=== PATIENT | male | born 1970 | race Caucasian/White ===

== ENCOUNTER 2024-05-01 09:03 | Emergency (ER) | payer OTHER, SELFPAY ==
[2024-05-01 09:06] VITALS: BP 217/104; BMI 39.6
--- NOTE | 2024-05-01 09:10 | ED.CVA ---
History of Present Illness
General
Chief Complaint: CVA/TIA Symptoms
Source: patient and ambulance crew
Exam Limitations: none
Time Seen by Provider: 05/01/24 09:09
Nursing documentation reviewed up to this point in time: agreed with
Onset of Stroke Symptoms
Onset of symptoms known: Yes
Date of onset of symptoms: 05/01/24
Time of onset of symptoms: 03:00
Time pt last seen normal is known: No
History of Present Illness
History of Present Illness:
54-year-old male presents emergency department complaining of left hand numbness, difficulty speaking. Symptoms began at 3 AM. When he awoke it was worse. He does not feel like he is having trouble speaking at this time.
Past History
Past History
ED Past Medical History: HTN and Other (Guillian Lock� syndrome, L5-S1 herniated disc)
ED Past Surgical History: Other (Lymph node removed from neck)
Social History
Tobacco: Smoker
Alcohol: None
Drug: None
Family History
Family History: Negative Diabetes, Hypertension or CAD
Review of Systems
Review of Systems
Allergies reviewed?: Yes
All Other Systems: Not applicable
Constitutional: Reports no symptoms
EENT: Reports other (Difficulty speaking)
Respiratory: Reports no symptoms
Cardiac: Reports no symptoms
ABD/GI: Reports no symptoms
: Reports no symptoms
Musculoskeletal: Reports no symptoms
Skin: Reports no symptoms
Neurological: Reports numbness
Endocrine: Reports no symptoms
Hematologic/Lymphatic: Reports no symptoms
Psychiatric: Reports no symptoms
Phy Exam
Physical Exam
Physical Exam:
Physical Exam
General: no apparent distress, not acutely ill
Neck: supple. no meningeal signs. normal posterior pharynx
Heart: s1/s2 regular rate and rhythm, no murmur. equal radial
pulses.
HEENT: Pupils equal round reactive to light, EOMI
Lungs: no acute respiratory distress. clear bilaterally
Abdomen: normal bowel sounds. not tender. no CVAT
Neuro: alert and oriented. no focal neurological deficits, except mild sensory deficit in left hand. cranial nerves II through XII intact
Skin: no rash
Psychiatric: well kept. interactive and cooperative
Extremities: no edema. no calf tenderness. negative homans. good distal pulses
NIH Stroke Score
Level of Consciousness: 0 - Alert
LOC questions: 0-Answers both correctly
LOC Commands: 0-Performs both correctly
Best Gaze: 0-Normal
Visual Vargas: 0=Normal, no visual loss
Facial palsy: 0=Normal, symmetrical
Motor - Right Arm: 0=No drift 10 seconds
Motor - Left Arm: 0=No drift 10 seconds
Motor - Right Le-No drift 5 seconds
Motor - Left Le-No drift 5 seconds
Limb Ataxia: 0-Absent
Sensation: 1-Mild loss
Best Language: 0-No aphasia
Dysarthria: 0-Normal
Extinction and Inattention: 0-No abnormality
Total Score:: 1
Alteplase Contraindication
Reasons for NON-Treatment with Thrombolytics: Time
Marjorie Coma Scale
Eye Opening: Spontaneous
Verbal Response: Oriented
Motor Response: Obeys Commands
GCS Total Score: 15
Scores
NIH Stroke Score
Level of Consciousness: 0 - Alert
LOC Questions: 0-Answers both correctly
LOC Commands: 0-Performs both correctly
Best Horizontal Gaze: 0-Normal
Visual Vargas: 0=Normal, no visual loss
Facial Palsy: 1=Minor paralysis
Motor - Right Arm: 0=No drift 10 seconds
Motor - Left Arm: 0=No drift 10 seconds
Motor - Right Le-No drift 5 seconds
Motor - Left Le-No drift 5 seconds
Limb Ataxia: 0-Absent
Sensation: 2-Severe loss
Best Language: 0-No aphasia
Dysarthria: 0-Normal
Extinction and Inattention: 0-No abnormality
Total Score:: 3
Thrombolytic Contraindication
Inclusion and Exclusion criteria reviewed: Yes
Reasons for NON-Tx with Thrombolytics ABSOLUTE Exclusions: Greater than 4.5 hrs from onset of sxs
Course
Orders/Labs/Results
Orders:
Orders
05/01/24 09:09
Electrocardiogram (*1) Stat
Reason for Study: Other
Other Reason for Exam: neuro symptoms
CT Head W/o Cont STROKE ALERT Urgent
Comment:
Reason For Exam: left arm numbness/weakness, dysarthria
CT Head/Neck Ang STROKE ALERT Urgent
Comment:
Reason For Exam: left arm numbness/weakness, dysarthria
Cardiac Monitoring- Treatment ONCE
EKG- Treatment ONCE
Pulse Ox/cont/shift [RESP] Stat
Quantity: 1
05/01/24 09:10
CMP [Comprehensive Metabolic Panel] Urgent
Complete Blood Count/With Diff Urgent
05/01/24 09:22
PTT Urgent
Prothrombin Time Urgent
05/01/24 09:25
Aspirin 325 mg PO NOW STA
Clopidogrel Bisulfate [Plavix] 300 mg PO NOW STA
NIH Stroke Scale As Directed
Directions: Per protocol
Neurological Checks As Directed
Frequency: Per unit guidelines
05/01/24 09:41
Nicardipine 40 mg/200 ml [Cardene] 40 mg in 200 ml IV NOW
05/02/24 08:00
Aspirin Low Dose EC [Aspir Low (Enteric Coated)] 81 mg PO DAILY
Clopidogrel Bisulfate [Plavix] 75 mg PO DAILY
Abnormal Lab Results
05/01/24 05/01/24
09:10 09:11
MPV 10.5 H fL
(7.4-10.4)
Absolute Monos (auto) 0.7 H 10^3/uL
(0.1-0.6)
Lymphocytes % 18.8 L %
(20.5-51.1)
Glucose 213 H mg/dl
(70-99)
POC Glucose 220 H mg/dl
(70-99)
05/01/24 09:10
05/01/24 09:10
Vital Signs
Initial and Last Documented VS:
Initial Vital Signs
Pulse Resp BP Pulse Ox
60 16 217/104 93
05/01/24 09:06 05/01/24 09:06 05/01/24 09:06 05/01/24 09:06
Last Documented Vital Signs
Temp Pulse Resp BP Pulse Ox
98.2 F 63 21 207/76 96
05/01/24 09:32 05/01/24 10:15 05/01/24 10:15 05/01/24 10:15 05/01/24 10:15
MDM/Problems Addressed
Differential Diagnosis Includes:
Intracranial hemorrhage, acute CVA
MDM/Problems Addressed:
54-year-old male with acute CVA, right carotid occlusion
Chronic conditions affecting care: HTN
Acute Exacerbation and/or Progression of Chronic Illness: HTN
*Radiology
Radiology exam reviewed: radiology read reviewed (CTA head and neck shows right internal carotid artery occlusion)
*Pulse Oximetry
Patient hypoxic: no
*EKG
Interpreted by ED Provider?: Yes
EKG Intrepretation Date: 05/01/24
EKG Intrepretation Time: 09:29
Interpretation: abnormal
Comparison EKG: changes noted
Heart Rate: 55
Rate: bradycardiac
Rhythm: sinus
Surveyor: normal axis
Interval: normal interval
QRS Pattern: normal QRS
Ischemia: non-specific ST changes
*Monitoring Manager Interpretation
Rate: bradycardiac
Interpretation: abnormal
Heart Rate: 55
Rhythm: sinus
*Critical Care Note
Total Time (30-74mins, 75-104mins- exclusive of procedures): 45
comment:
Critical care statement: A total of 45 minutes of critical care time was provided for this patient. This includes management of unstable vital signs, evaluation of the patient at bedside, reviewing the patient's pertinent medical records, discussion
with consultants, review of old EKGs and review of pertinent medical records. This time with separate from time utilized to perform the aforementioned documented procedures
Patient Management
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
Escalation/DeEscalation of care consider admission/obs:
Transfer to [facility]
ED Attending Note
-
Portions of this chart may have been created with voice recognition software.� Occasional wrong word or��sound alike� substitutions may have occurred due to the inherent limitations of voice recognition software.
Discharge Plan
Departure
Patient Disposition: Acute Care Hospital
Date of Disposition: 05/01/24
Time of Disposition: 10:05
Condition: Fair
Discharge Problem:
Acute cerebrovascular accident (CVA)
Prescriptions:
No Action
calcium carbonate-vitamin D3 [Calcium + D] 600 mg-5 mcg (200 unit) Tablet
1 tab PO DAILY
ibuprofen 200 mg Tablet
600 mg PO [id number] PRN (Reason: back pain)
Centrum Silver Tablet
1 tab PO DAILY
Hospital Transfer
Other hospital: [facility]
I certify that the patient requires transfer: Yes
Discussed case with accepting physician: Flakita
Reason for transfer: higher level of care and specialties available
Interventions
Interventions:
*Risk Screen - Suicide Last Done: 05/01/24 09:32
*General Assessment Last Done: 05/01/24 09:06
*Neglect/Abuse Screening Last Done: 05/01/24 09:32
ED- Fall Risk Assessment Last Done: 05/01/24 09:06
*ED COVID-19 Vaccine History Last Done: 05/01/24 09:32
*Nursing Disposition Last Done: 05/01/24 10:40
ED- Pulmonary Assessment Last Done: 05/01/24 09:06
ED- Neurological Assessment Last Done: 05/01/24 09:06
ED- Cardiac Assessment Last Done: 05/01/24 09:06
ED Swallowing Screen Last Done: 05/01/24 09:36
Discharge Date and Time
Discharge Date/Time: 05/01/24 10:40
Print Language: PALAUAN
[2024-05-01 09:17] LABS: Glucose - Point of Care 220 mg/dl (70-99)
[2024-05-01 09:19] LABS: % Eosinophils 1.8 % (0-6); % Immature Granulocytes 0.2 % (0-0.5); % Lymphocytes 18.8 % (20.5-51.1); % Monocytes 7.8 % (1.7-9.3); % Neutrophils 70.4 % (42.2-75.2); Absolute Basophils 0.1 10^3/uL (0-0.2); Absolute Eosinophils 0.2 10^3/uL (0-0.7); Absolute Lymphocytes 1.7 10^3/uL (1.2-3.4); Absolute Monocytes 0.7 10^3/uL (0.1-0.6); Absolute Neutrophils 6.4 10^3/uL (1.4-6.5); Hematocrit 43.9 % (39.0-52.0); Hemoglobin 15.5 g/dL (13.0-18.0); Mean Corp Hgb Conc. 35.3 g/dL (33.0-37.0); Mean Corpuscular Hgb 30.6 pg (27.0-31.0); Mean Corpuscular Volume 86.8 fL (80.0-94.0); Mean Platelet Volume 10.5 fL (7.4-10.4); Nucleated Red Blood Cells % 0 % (-); Platelet Count 215 10^3/uL (130-400); Red Blood Cell Count 5.06 10^6/uL (4.70-6.10); Red Cell Dist. Width 12.9 % (11.5-14.5); White Blood Cell Count 9.1 10^3/uL (4.8-10.8)
[2024-05-01 09:30] VITALS: BP 224/91
[2024-05-01 09:32] VITALS: BP 224/90
[2024-05-01 09:36] LABS: ALT (SGPT) 30 U/L (0-50); AST (SGOT) 34 U/L (17-59); Albumin 4.3 g/dl (3.5-5.0); Alkaline Phosphatase 116 U/L (38-126); Blood Urea Nitrogen 18 mg/dl (9-20); Calcium 9.2 mg/dl (8.4-10.2); Carbon Dioxide 24 mmol/L (22-30); Chloride 105 mmol/L (98-107); Estimated Creatinine Clearance > 125 ml/min; Glucose 213 mg/dl (70-99); Potassium 4.4 mmol/L (3.5-5.1); Sodium 139 mmol/L (135-145); Total Bilirubin 0.8 mg/dl (0.2-1.3); Total Protein 7.5 g/dl (6.3-8.2); eGFR > 60.00
[2024-05-01] MEDS: ASPIRIN 325 MG PO (09:37)
[2024-05-01] MEDS: PLAVIX 300 MG PO (09:37)
[2024-05-01 09:43] LABS: INR 1.02; PT 13.4 Sec (11.4-14.6)
[2024-05-01] MEDS: CARDENE 200 IV (09:45)
[2024-05-01 09:49] VITALS: BP 238/104
[2024-05-01 10:15] VITALS: BP 207/76
--- NOTE | 2024-05-01 12:59 | CON.NEURO4 ---
Consultation - Neurology 4
-
CONSULTING PHYSICIAN: Sara Mesa
REFERRING PHYSICIAN: ER
DICTATED BY: Sara Mesa
DATE/TIME OF REQUEST: 05/01/24
DATE/TIME OF CONSULTATION: 05/01/24
Reason for Consultation: Left hemibody paresthesia, left hand weakness
History of Present Illness:
Patient is a right-handed 54-year-old male with a past med history of obesity presented to hospital with left hand weakness and left hemibody paresthesia. He was last known normal last night around 10 PM before going to bed he did notice some of
the symptoms seem to be present with some left hand numbness around 3 AM last night. He woke up this morning was able to get out of bed but did feel significantly dizzy with some feeling of numbness on the left hand and arm. 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
his [employer] store and due to worsening symptoms along with speech difficulty he presented to the ER as a stroke alert with transportation via EMS.
He noticed that in the morning he was having dropping objects and was not able to use his left hand properly.
Patient has no history of TIA or stroke does not take any blood thinners he had been recommended for taking antihypertensives but chose not to pursue this. Currently no headache. No history of any visual issues on the right or left eyes.
Past Medical History: Suspect undiagnosed hypertension, obesity
Surgical History: None
Family History: No family history of stroke or CAD at early age
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
Allergies: No known drug allergies
Review of Symptoms:
Patient denies any fever, headache, chest pain, shortness of breath, GI or symptoms.
Physical Exam:
Middle-age man well-appearing pleasant well-groomed well-nourished no signs of head or neck trauma eyes are clear oropharynx is clear neck supple no masses, heart rate regular breathing unlabored abdomen obese soft nontender no lower extremity edema
Neurologic Examination:
The patient is awake, alert and oriented x 3. He is able to follow commands and answer questions appropriately. There is no aphasia. Recognizes own left arm. Barely appreciable dysarthria present. On cranial nerve assessment, pupils are 3 mm
bilateral, round and reactive to light and accommodation. Visual vargas are full. Extraocular movements are intact. Facial sensations are intact and bilaterally symmetrical, left face has some asymmetry with droop on the left but no weakness on
smiling. Hearing is intact bilaterally to normal conversation volume. Tongue palate and uvula are midline. Sternocleidomastoid strengths are full bilaterally. Motor strengths are 5/5 bilateral upper and lower extremities on medical research
[place] scale. There is no drift or involuntary movement noted. Deep tendon reflexes are 2+ bilateral upper and lower extremities and Babinski is absent bilaterally. Significant sensation loss to light touch on left arm and leg, cannot feel light
touch on either limb. Coordination is intact by finger to nose bilaterally.
Neuro Imaging:
CT head noncontrast with no acute infarct or early ischemia seen aspect score of 10 no hemorrhage no masses or edema
CTA of the head and neck with right internal carotid occlusion at the origin with some reconstitution at the distal ICA, no no intracranial occlusion of the MCA or BRIEN or [employer]ICER arteries identified.
Impressions
1. Acute onset left arm and leg paresthesia with signs by history of left hand weakness, also very minor dysarthria and left facial weakness. Probably related to the right internal carotid artery occlusion and as such the patient is at risk for
large right MCA stroke. He has mild deficits with NIH stroke scale of 3-4 with the work and as such would not be a typical mechanical thrombectomy candidate but this would still need to be strongly considered
2. Likely undiagnosed hypertension
Patient has the following risk factors for their symptoms:
IV Tenecteplase/IAT candidacy: Outside time window for TNK. Patient does have a right internal carotid occlusion which is probably related to his left-sided arm weakness and left-sided paresthesia, although it is possible that this is a chronic
lesion. He has mild deficits on neurologic examination with significant left arm and leg sensory loss, perhaps minor dysarthria and perhaps minor left facial weakness an NIH stroke scale of 3-4 at the worst. Pursuing thrombectomy in such a patient
would be controversial but I do feel that he would be best served by transfer to a comprehensive stroke center where he could be watched in a specialized setting and pursued for thrombectomy if felt appropriate.
Recommendations:
1. Give aspirin 324 and clopidogrel 300 mg both now
2. Would pursue transfer to [facility] center
3. Would start low-dose Cardene 2.5 mg an hour, pursue systolic blood pressure less than 220 for the time being
4. Not a candidate for tenecteplase
5. Neurologic checks and NIH scales
6. Cardiac telemetry
7. Discussed my reasoning behind transfer to [facility] [place] with the patient and [facility], he would not be a clear-cut thrombectomy candidate, in some situations patient will be monitored closely in ICU setting but also
would need to be strongly considered for clot removal of the right internal carotid occlusion, this being the case I do feel he would be best served by [facility] center with specialty care by stroke neurology and endovascular
proceduralists.
ICU time = 80 minutes
NIH Stroke Score
Subsequent NIH Scale
Date of Subsequent NIH Scale: 05/01/24
Time of Subsequent NIH Scale: 10:00
NIH Stroke Score
Level of Consciousness: 0 - Alert
LOC Questions: 0-Answers both correctly
LOC Commands: 0-Performs both correctly
Best Horizontal Gaze: 0-Normal
Visual Vargas: 0=Normal, no visual loss
Facial Palsy: 1=Minor paralysis
Motor - Right Arm: 0=No drift 10 seconds
Motor - Left Arm: 0=No drift 10 seconds
Motor - Right Le-No drift 5 seconds
Motor - Left Le-No drift 5 seconds
Limb Ataxia: 0-Absent
Sensation: 2-Severe loss
Best Language: 0-No aphasia
Dysarthria: 0-Normal
Extinction and Inattention: 0-No abnormality
Total Score:: 3
Alteplase Contraindication
Reasons for NON-Tx with Thrombolytics ABSOLUTE Exclusions: Greater than 4.5 hrs from onset of sxs
Home Medications
-
Home Medications
calcium carbonate 600 mg-vitamin D3 5 mcg (200 unit) tablet 1 tab PO DAILY Supplement 05/01/24
ibuprofen 200 mg tablet 600 mg PO [id number] PRN back pain 05/01/24
[id number]-[id number]-[id number] tablet 1 tab PO DAILY Supplement 05/01/24
Allergies
-
Allergies
Allergy/AdvReac Type Severity Reaction Status Date / Time
No Known Allergies Allergy Verified 05/01/24 09:07
Vital Signs / Labs
-
Vital Signs and Labs:
Temp Pulse Resp BP Pulse Ox
98.2 F 63 21 207/76 96
05/01/24 09:32 05/01/24 10:15 05/01/24 10:15 05/01/24 10:15 05/01/24 10:15
05/01/24 09:10
05/01/24 09:10
05/01/24 05/01/24
09:10 09:11
MPV 10.5 H
Absolute Monos (auto) 0.7 H
Lymphocytes % 18.8 L
Glucose 213 H
POC Glucose 220 H
== END 2024-05-01 10:40 | disposition short-term general hospital (02) ==
LOC: EMR 09:03
PROVIDERS: EMERGENCY PHYSICIAN Emergency Medicine; OTHER PHYSICIAN Student in an Organized Health Care Education/Training Program
DX: I63.9 Cerebral infarction, unspecified (principal); R47.1 Dysarthria and anarthria; R53.1 Weakness; I65.21 Occlusion and stenosis of right carotid artery; I10 Essential (primary) hypertension; E66.9 Obesity, unspecified; G61.0 Guillain-Barre syndrome; F17.210 Nicotine dependence, cigarettes, uncomplicated
CPT/HCPCS: 99291; 96365; 70450; 70496; 70498; 80053; 82962; 85025; 85610; 85730; 93005; Q9967

== ENCOUNTER 2024-05-03 22:13 | Inpatient (IN) | payer OTHER, SELFPAY ==
[2024-05-03 19:02] VITALS: BP 186/112
[2024-05-03 19:09] VITALS: BP 126/57
[2024-05-03 19:11] VITALS: BMI 36.3
--- NOTE | 2024-05-03 19:12 | EDRN ---
pt was driving to work and his L hand was numb so 911 called. 'Next thing I knew I was in [place] and I've had enough of that and I decided I didn't want to be there any more.' Pt says he was evlauated and told they did not want to
do surgery because he was a 1-2 on the stroke scale so he would be started on blood thinners and watch him. Pt says he was told the clot that he has there is a good chance it would clear up. Pt says his L hand is still numb and he has been told he
has a L facial droop. Pt signed out AMA from [place] this morning and went home. Son says pt's speech is '10 times worse than it was yesterday.' Son wanted to bring pt back to [place] but he wanted to get pt to [facility]. Son has
been talking with neurologist who said pt should come back [facility]. Doctor reportedly told son that pt is weaker than previously. Someone called 911 [facility] because they saw pt on the street. Son arrived and told EMS he would take pt to hospital.
Pt has chronic back pain. Pt describes mild pressure all over head. No photophobia, visual disturbance. Son says pt needs 2 people to help him walk. Pt unable to get onto his feet independently. L arm feels less sensation than R. No cp, sob,
abd pain, n/v, fever/chills/cough.
[2024-05-03 19:55] LABS: % Basophils 0.7 % (0-2); % Immature Granulocytes 0.3 % (0-0.5); % Lymphocytes 13.2 % (20.5-51.1); % Monocytes 7.3 % (1.7-9.3); % Neutrophils 77.5 % (42.2-75.2); Absolute Basophils 0.1 10^3/uL (0-0.2); Absolute Eosinophils 0.1 10^3/uL (0-0.7); Absolute Lymphocytes 1.8 10^3/uL (1.2-3.4); Absolute Neutrophils 10.4 10^3/uL (1.4-6.5); Hematocrit 45.1 % (39.0-52.0); Hemoglobin 16.1 g/dL (13.0-18.0); Mean Corp Hgb Conc. 35.7 g/dL (33.0-37.0); Mean Corpuscular Hgb 30.4 pg (27.0-31.0); Mean Corpuscular Volume 85.3 fL (80.0-94.0); Mean Platelet Volume 10.4 fL (7.4-10.4); Nucleated Red Blood Cells % 0 % (-); Platelet Count 240 10^3/uL (130-400); Red Blood Cell Count 5.29 10^6/uL (4.70-6.10); Red Cell Dist. Width 12.9 % (11.5-14.5); White Blood Cell Count 13.5 10^3/uL (4.8-10.8)
[2024-05-03 21:00] VITALS: BP 113/66
[2024-05-03 21:09] LABS: Blood Urea Nitrogen 30 mg/dl (9-20); Calcium 9.9 mg/dl (8.4-10.2); Carbon Dioxide 25 mmol/L (22-30); Chloride 102 mmol/L (98-107); Estimated Creatinine Clearance 110 ml/min; Glucose 132 mg/dl (70-99); Magnesium 2.4 mg/dl (1.6-2.3); Sodium 137 mmol/L (135-145); eGFR > 60.00
--- NOTE | 2024-05-03 21:13 | ED.CVA ---
History of Present Illness
General
Chief Complaint: CVA/TIA Symptoms
Source: patient
Exam Limitations: none
Time Seen by Provider: 05/03/24 19:14
Nursing documentation reviewed up to this point in time: agreed with
Onset of Stroke Symptoms
Onset of symptoms known: Yes
Date of onset of symptoms: 05/01/24
Travel History
Have you had any contact with someone who has COVID-19?: No
Do you have any symptoms of coronavirus? Fever > 100 degrees, chills, cough, shortness of breath, sore throat, loss of taste or smell, muscle aches, or headache?: No
History of Present Illness
History of Present Illness:
Patient diagnosed with CVA 2 days ago and transferred to [facility] secondary to complete occlusion of right ICA, presents to ED for evaluation today, after he signed out AMA at [facility] this morning. Since being discharged home,
son states that patient's speech appears to be more slurred. Patient also has trouble ambulating. Patient denies headache. Denies dizziness. Denies difficulty swallowing. Denies loss of sensation. Patient was given medications when he left
[facility] this morning, which he has not taken yet.
Past History
Past History
ED Past Medical History: HTN and Other (Guillian Lock� syndrome, L5-S1 herniated disc)
ED Past Surgical History: Other (Lymph node removed from neck)
Social History
Tobacco: Smoker
Alcohol: None
Drug: None
Family History
Family History: Negative Diabetes, Hypertension or CAD
Review of Systems
Review of Systems
Allergies reviewed?: Yes
All Other Systems: ROS reviewed and negative except as documented in HPI and ROS
Constitutional: Reports no symptoms
Respiratory: Reports no symptoms
Cardiac: Reports no symptoms
ABD/GI: Reports no symptoms
Musculoskeletal: Reports no symptoms
Skin: Reports no symptoms
Neurological: Reports weakness and other (Slurred speech)
Phy Exam
Physical Exam
Physical Exam:
Physical Exam
General: mild distress, not acutely ill
Neck: supple. no meningeal signs.
Heart: s1/s2 regular rate and rhythm, no murmur. equal radial pulses.
Lungs: no acute respiratory distress. clear bilaterally
Abdomen: normal bowel sounds. not tender.
Neuro: alert and oriented. slurred speech. facial droop. LUE motor (3/5). LLE motor (4/5).
Skin: no rash
Psychiatric: well kept. interactive and cooperative
Extremities: no edema. no calf tenderness.
Course
Orders/Labs/Results
Orders:
Orders
05/03/24 19:38
Electrocardiogram (*1) Urgent
Reason for Study: PreOp
CT Head W/o Iv Contrast Urgent
Comment:
Reason For Exam: left sided weakness with slurred speech
EKG- Treatment ONCE
05/03/24 19:49
Complete Blood Count/With Diff Urgent
05/03/24 20:29
Basic Metabolic Panel Urgent
Magnesium Urgent
05/03/24 21:14
Aspirin 325 mg PO NOW STA
Clopidogrel Bisulfate [Plavix] 75 mg PO NOW STA
05/03/24 21:27
Speech Screening from [place] Routine
05/03/24 21:58
Admit/Transfer Patient As Directed
Co-Sign Provider:
Level of Care: Inpatient admission
Assign to:: Telemetry
Physician / Group: Hospitalist
Diagnosis: CVA
Reason for Telemetry: CVA/TIA
Date to Stop Telemetry: 05/06/24
Time to Stop Telemetry: 11:00
Reason for Hospitalization: CVA/TIA
Expected length of stay greater than two midnights?: Yes
ELOS- Estimated Length of Stay in days: 5
I certify the patient meets the requirements for IP care: Yes
05/03/24 22:00
Code Status As Directed
Resuscitation Status: Full Code
05/03/24 23:03
Acetaminophen [Tylenol/Feverall] 650 mg RECTAL Q4HPRN PRN
Acetaminophen [Tylenol] 650 mg PO Q4HPRN PRN
Dextrose 50%-Water [Dextrose 50% Syringe] 12.5 grams IV [id number] PRN
Glucagon [GlucaGen] 1 mg IM PRN PRN
Nicotine Polacrilex [Nicorette] 2 mg PO Q3HPRN PRN
05/03/24 23:03
Case Management Consult ONCE
Case Management Consult: Discharge Planning
Comment: stroke/tia
Consult Notification Routine
Specialty to Notify: Neurology
DIETARY CONSULT Routine
Reason for Consult: stroke/TIA
NEUROLOGY CONSULT Urgent
Consulting Provider: Sari Gordillo
Was physician already notified: No
Reason for consult: CVA
Pharmacy Tech Urgent
MR Brain Without Contrast Routine
Comment:
Reason For Exam: stroke/TIA
OK for patient to be off Cardiac Monitoring for MRI: Yes
Recent pill cam endoscopy?: No
Activity As Directed
Activity Level: With Assistance
Bedside Glucose Monitoring As Directed
Frequency: AC&HS
Additional Instructions:: Change to q6h if pt on TPN, tube feeding or not eating
NIH Stroke Scale As Directed
Directions: Per protocol
Comment: every shift and with any change in condition or mental status
Neurological Checks As Directed
Frequency: q4h
Additional Instructions:: q4h x 24h upon admission to the floor, then qshift & with any change in condition
and mental status
Patient Education As Directed
Type: Stroke education packet
Comment: provide to patient and family
Pneumatic Compression Sleeves As Directed
Type: Knee high
Swallow Screening CVA/TIA ONLY As Directed
Comment: NPO until swallowing screening completed
If patient FAILS swallow screening:: NPO, Speech Therapy consult, Aspiration Precautions
If patient PASSES swallow screening, diet:: Cholesterol Lowering
Above diet order entered?: Yes- passed screening
Vital Signs As Directed
Frequency: Per unit guidelines
Ot Eval And Treat Routine
Pt Eval And Treat Routine
Treatment: eval gait
Activity Level: With Assistance
Speech Therapy Eval & Treat Routine
DX Deep Vein Thrombosis Video Routine
05/04/24 06:00
BMP [Basic Metabolic Panel] IN AM
CBC/No Diff [Complete Blood Count/No Diff] IN AM
Cardiovascular Evaluation IN AM
Glycohemoglobin (HgbA1c) IN AM
Magnesium IN AM
05/04/24 07:30
Insulin Aspart Corrective Low [Novolog Flexpen-Low Resistance] See Protocol SC AC
05/04/24 08:00
Aspirin Chewable [Low Strength Aspirin] 81 mg PO DAILY
Calcium Carbonate/Vitamin D3 [Oscal 500 + D] 600 mg PO DAILY
Clopidogrel Bisulfate [Plavix] 75 mg PO DAILY
Lisinopril [Zestril] 10 mg PO DAILY
Multivitamin [Theragran] 1 tablet PO DAILY
Nicotine [Nicoderm Transdermal] 21 mg TRANSDERM DAILY
05/04/24 18:00
Atorvastatin [Lipitor] 80 mg PO QPM
05/06/24 11:00
DC Protocol for Telemetry ONCE
Abnormal Lab Results
05/03/24 05/03/24
19:49 20:29
WBC 13.5 H 10^3/uL
(4.8-10.8)
Absolute Neuts (auto) 10.4 H 10^3/uL
(1.4-6.5)
Absolute Monos (auto) 1.0 H 10^3/uL
(0.1-0.6)
Neutrophils % 77.5 H %
(42.2-75.2)
Lymphocytes % 13.2 L %
(20.5-51.1)
BUN 30 H mg/dl
(9-20)
Glucose 132 H mg/dl
(70-99)
Magnesium 2.4 H mg/dl
(1.6-2.3)
05/03/24 19:49
05/03/24 20:29
Vital Signs
Initial and Last Documented VS:
Initial Vital Signs
Temp Pulse Resp BP Pulse Ox
98.9 F 74 24 186/112 97
05/03/24 19:02 05/03/24 19:02 05/03/24 19:02 05/03/24 19:02 05/03/24 19:02
Last Documented Vital Signs
Temp Pulse Resp BP Pulse Ox
98.6 F 111 18 163/86 97
05/03/24 23:20 05/03/24 23:20 05/03/24 23:20 05/03/24 23:20 05/03/24 23:20
MDM/Problems Addressed
MDM/Problems Addressed:
CT head report reviewed and discussed with on-call neurologist, Dr. Gordillo. Recommends admitting patient and continue aspirin/Plavix.
*Critical Care Note
Total Time (30-74mins, 75-104mins- exclusive of procedures): Not Applicable
ED Attending Note
-
Portions of this chart may have been created with voice recognition software.� Occasional wrong word or��sound alike� substitutions may have occurred due to the inherent limitations of voice recognition software.
Discharge Plan
Departure
Patient Disposition: Admit
Date of Disposition: 05/03/24
Time of Disposition: 21:19
Presentation/result/management discussed w/ accepting MD/DO: Hospitalist
Discharge Problem:
Acute CVA (cerebrovascular accident)
Interventions
Interventions:
*Risk Screen - Suicide Last Done: 05/03/24 23:14
*General Assessment Last Done: 05/03/24 19:11
*Neglect/Abuse Screening Last Done: 05/03/24 19:02
ED- Fall Risk Assessment Last Done: 05/03/24 19:55
*ED COVID-19 Vaccine History Last Done: 05/03/24 23:14
*Nursing Disposition Last Done: 05/03/24 22:56
ED- Pulmonary Assessment Last Done: 05/03/24 19:35
ED- Neurological Assessment Last Done: 05/03/24 19:28
ED- Cardiac Assessment Last Done: 05/03/24 19:35
ED Swallowing Screen Last Done: 05/03/24 21:25
Discharge Date and Time
Discharge Date/Time: 05/03/24 22:56
[2024-05-03] MEDS: ASPIRIN 325 MG PO (21:28)
[2024-05-03] MEDS: PLAVIX 75 MG PO (21:28)
--- NOTE | 2024-05-03 21:46 | HPS.HSE ---
Family Physician
-
Family Physician: * NONE
Chief Complaint
-
Stroke
History of Present Illness
54 year old man was diagnosed with a CVA 2 days ago and transferred to [facility]. He had a near complete occlusion of right ICA, however, was unable to remove the occlusion. He presents to ED for evaluation today, after he signed out
AMA at [facility] this morning. He is still smoking. Since being discharged home, the patient's speech appears to be more slurred. He now also has trouble ambulating. Patient denies headache, dizziness, difficulty swallowing, loss of
sensation. Patient was given medications when he left [facility] this morning, which he has not taken yet. At the time of my interview he had no new complaints. He did not have a MRI at .
Medical History
Past Medical History
Past Medical History: Reports Other
Additional Past Medical History:
Essential HTN
Guillian Lock� syndrome,
L5-S1 herniated disc
Lymph node removed from neck
Ongoing smoking
Past Surgical History: Reports Other
Additional Past Surgical History:
See above
Social History
Tobacco: Smoker
Alcohol: None
Drug: None
Family History
Family History: Not pertinent
Allergies / Home Medications
Allergies reflects when Allergies were last updated in [employer]
Home Medications with original date entered in [employer]
Allergy/Medication List:
Allergies
Allergy/AdvReac Type Severity Reaction Status Date / Time
No Known Allergies Allergy Verified 05/03/24 19:04
Home Medications
calcium carbonate 600 mg-vitamin D3 5 mcg (200 unit) tablet 1 tab PO DAILY Supplement 05/01/24
isxzevrlhpca-ulhfrvej-ykhpcy tablet 1 tab PO DAILY Supplement 05/01/24
aspirin 81 mg chewable tablet 81 mg PO DAILY 05/03/24
atorvastatin 80 mg tablet 80 mg PO QPM 05/03/24
clopidogrel 75 mg tablet 75 mg PO DAILY 05/03/24
ibuprofen 200 mg tablet (Advil) 600 - 800 mg PO HS 05/03/24
lisinopril 10 mg tablet 10 mg PO DAILY 05/03/24
nicotine (polacrilex) 2 mg gum 2 mg buccal Q3HPRN PRN smoking cessation 05/03/24
nicotine 21 mg/24 hr daily transdermal patch 1 patch transdermal DAILY 05/03/24
Review of Systems
-
History Source: Patient
A 12 point ROS was completed and negative except as noted: Yes
Physical Exam
Vital Signs
Vital Signs
Temp Pulse Resp BP Pulse Ox
98.9 F 57 16 113/66 97
05/03/24 19:02 05/03/24 21:00 05/03/24 21:00 05/03/24 21:00 05/03/24 21:00
Physical Exam
General: Well Developed, Well Nourished, No Apparent Distress and Obese
HEENT: Moist mucous membranes, Nose Appears Normal and Ears Appear Normal
Respiratory: Clear
Cardiac: S1/S2 and Regular Rhythm
GI: Soft, Non Tender and Non Distended
Musculoskeletal: No Clubbing, No Cyanosis and No Edema
Skin: Warm and Dry; No Rash or Jaundice
Neuro: Awake, Alert, Oriented, No Motor Deficits (poor coordination on let arm/hand.), Slurred Speech and Facial Droop
Laboratory Results
-
05/03/24 19:49
05/03/24 20:29
Laboratory Results
Total Bilirubin Cancelled 05/03/24 20:29
AST Cancelled 05/03/24 20:29
ALT Cancelled 05/03/24 20:29
Alkaline Phosphatase Cancelled 05/03/24 20:29
Data Reviewed
-
Lab Data: Labs Reviewed by me
Impression/Plan
-
IMPRESSION:
54 man with stroke. Currently smoking.
PLAN:
1. Stroke. Case d/w neurology. not a candidate for TPA.
Aspirin
Plavix
Statin
Neuro consult in am
2. Essential HTN - continue lisinopril
3. Smoking - nicotine patch
Code: Full
VCD for DVTp
[2024-05-03 22:00] VITALS: BP 154/79
--- NOTE | 2024-05-03 22:33 | EDRN ---
Verbal report to pt's nurse Amber reza.
[2024-05-03 23:19] VITALS: BMI 35.3
[2024-05-03 23:20] VITALS: BP 163/86
[2024-05-04] VITALS (9 sets, daily range): BP systolic 138–196; BP diastolic 60–95; PULSE 75
--- NOTE | 2024-05-04 | PTCARENOTE ---
Pt. admitted through E.D., AAO x 3, vs stable, NIH 7, SB with first degree AVB on monitor, call al within reach.
[2024-05-04 06:28] LABS: Hematocrit 42.7 % (39.0-52.0); Hemoglobin 15.1 g/dL (13.0-18.0); Mean Corp Hgb Conc. 35.4 g/dL (33.0-37.0); Mean Corpuscular Hgb 30.5 pg (27.0-31.0); Mean Corpuscular Volume 86.3 fL (80.0-94.0); Mean Platelet Volume 11.2 fL (7.4-10.4); Platelet Count 221 10^3/uL (130-400); Red Blood Cell Count 4.95 10^6/uL (4.70-6.10); Red Cell Dist. Width 12.9 % (11.5-14.5); White Blood Cell Count 10.4 10^3/uL (4.8-10.8)
[2024-05-04 07:09] LABS: Blood Urea Nitrogen 29 mg/dl (9-20); Calcium 9.7 mg/dl (8.4-10.2); Carbon Dioxide 25 mmol/L (22-30); Chloride 103 mmol/L (98-107); Estimated Creatinine Clearance 108 ml/min; Glucose 109 mg/dl (70-99); HDL Cholesterol 30 mg/dl; LDL Cholesterol, Calculated 114 mg/dl; Magnesium 2.4 mg/dl (1.6-2.3); Potassium 3.8 mmol/L (3.5-5.1); Sodium 139 mmol/L (135-145); Total Cholesterol 183 mg/dl (50-199); Triglyceride 195 mg/dl (10-149); Very Low Density Lipoprotein 39 mg/dl (0-30); eGFR > 60.00
[2024-05-04 07:41] LABS: Glucose - Point of Care 134 mg/dl (70-99)
[2024-05-04] MEDS: NOVOLOG FLEXPEN-LOW RESISTANCE SC ×2 (08:05→16:20)
[2024-05-04] MEDS: NICODERM TRANSDERMAL 21 MG TRANSDERM (08:05)
[2024-05-04] MEDS: LOW STRENGTH ASPIRIN 81 MG PO (08:05)
[2024-05-04] MEDS: OSCAL 500 + D 600 MG PO (08:06)
[2024-05-04] MEDS: PLAVIX 75 MG PO (08:07)
[2024-05-04] MEDS: ZESTRIL 10 MG PO ×2 (08:08→20:37)
[2024-05-04] MEDS: THERAGRAN 1 TABLET PO (08:08)
[2024-05-04 08:59] LABS: Glycohemoglobin (HgbA1c) 7.6 % (4.0-5.6)
--- NOTE | 2024-05-04 09:20 | PTOTSP ---
SPEECH THERAPY SWALLOW EVALUATION:
Clinical signs of oropharyngeal dysphagia, likely acute related subacute CVA, and possibly with a chronic component related to prior uvula surgery. No CXR currently available. WBC WNL at this time; Was elevated yesterday 05/03 13.5. Patient educated
on aspiration precautions and safe swallow strategies, and observed implementing strategies independently during self-feeding. Recommend continue Regular texture diet, thin liquids. Medications whole with liquid, single sips, one pill at a time.
Aspiration precautions including: Upright positioning; Small sips/bites; Slow rate; Check for pocketing on Left; Finger/lingual sweep; Mastication on Right; Intersperse liquids/liquid wash; Oral care 3x/day to reduce risk for nosocomial infection;
Increased mobility as tolerated; Partial supervision with meals to assess for any signs of aspiration; D/c oral diet if any signs of aspiration or decline in mental/respiratory status. Speech therapy to follow, monitor CXR and WBC, determine
indication for VSE if appropriate, assess diet tolerance and modify as appropriate, and complete full speech/language/cognitive communication.
RECOMMEND:
1) continue Regular texture diet, thin liquids
2) Medications whole with liquid, single sips, one pill at a time
3) Aspiration precautions including: Upright positioning; Small sips/bites; Slow rate; Check for pocketing on Left; Finger/lingual sweep; Mastication on Right; Intersperse liquids/liquid wash; Oral care 3x/day to reduce risk for nosocomial
infection; Increased mobility as tolerated; Partial supervision with meals to assess for any signs of aspiration; D/c oral diet if any signs of aspiration or decline in mental/respiratory status
4) Speech therapy to follow
[2024-05-04 11:32] LABS: Glucose - Point of Care 165 mg/dl (70-99)
[2024-05-04 11:43] LABS: Glucose - Point of Care 168 mg/dl (70-99)
[2024-05-04] MEDS: NOVOLOG FLEXPEN-LOW RESISTANCE 1 UNITS SC (11:53)
--- NOTE | 2024-05-04 12:30 | PTCARENOTE ---
Addendum entered by Neha Herrera RN 05/04/24 13:20:
Pt's family wheeled the patient around the floor and did not leave the floor as asked.
Original Note:
Pt stated he was going to have his family wheel him in the wheelchair outside for 'just a minute' to get fresh air. Pt instructed that leaving the floor was not allowed since this nurse was unable to monitor pt on telemetry while outside and pt is
in the acute phase of his CVA. If pt has any change to his assessment and was 'outside' this nurse would not be able to attend to him. Agreement made that pt can be wheeled around the floor, but not leave the floor. Pt states he left [place]
[facility] because he had a panic attack and felt trapped. Emotional support given to this patient and discussed the importance of following the advice of the doctors and nurses at this time so that the goal of independence can be reached in time.
Will continue to monitor.
--- NOTE | 2024-05-04 13:19 | W.PN.HOSP.TC ---
Today's Communication/Plan
-
See plan above
Assessment / Plan
Assessment / Plan
Slurred speech and left sided hemiparesis secondary to acute to subacute nonhemorrhagic infarct in the right MCA distribution. Stroke is at least 3 days old. He initially presented at outside hospital 05/01/2024 and was sent to [facility]
because of complete right ICA occlusion. There was also 70% left-sided ICA stenosis.
patient was discharged AMA and came back to the hospital because of worsening slurred speech which may be secondary to recrudescence of speech.
CW DAPT, statins
Goal is normotension
Start on Metfromin for HbA1C 7.6
SR on monitor
Will dw Neuro re; Vascular surgery eval for Left ICA stenosis
Advised against tobacco smoking
PT/OT eval
Anticipated Discharge: 24 - 48 hours
Subjective/Interval History
-
Date of Service: May 04, 2024
No headache today.
Still with slurred speech. No aphasia. Able to find his words and understand them.
Left arm and leg weakness since stroke.
Couldn't tell me the vascular recommendations from other hospital . No interventions were done nor planned in immediate future per pt.He discharged AMA from [facility].
Objective Data
-
Labs:
Laboratory Results
05/04/24
05:28
WBC 10.4
Hgb 15.1
Hct 42.7
Plt Count 221
Sodium 139
Potassium 3.8
Chloride 103
Carbon Dioxide 25
BUN 29 H
Creatinine 1.1
Glucose 109 H
Calcium 9.7
Vital Signs:
Vital Signs
Temp Pulse Resp BP Pulse Ox
97.8 F 69 16 174/85 99
05/04/24 11:48 05/04/24 11:48 05/04/24 11:48 05/04/24 11:48 05/04/24 11:48
I&O
05/03/24 05/04/24 05/05/24
06:59 06:59 06:59
Intake Total 240 / 240
Balance 240 / 240
Review of Systems
-
Respiratory: Denies Trouble Breathing
Cardiac: Denies Chest Pain or Palpitations
Neuro: Denies Dizzy
Physical Exam
-
General: No Apparent Distress
HEENT: Moist Mucous Membranes
Respiratory: Clear to Auscultation
Cardiac: Regular Rhythm and S1/S2
GI: Soft
Neuro: AO x 3 and Other (slurred speech but no aphasia); Negative No Motor Deficits (LUE4/5 ;LLE 4/5 . RUE/RLE 5/5; Left facial droop noted.)
Psych: Calm
Data Reviewed
-
Labs: Labs Reviewed by me
--- NOTE | 2024-05-04 14:06 | CON.NEURO4 ---
Consultation - Neurology 4
-
CONSULTING PHYSICIAN: Duy
REFERRING PHYSICIAN: ER
DICTATED BY: Duy
DATE/TIME OF REQUEST: 05/03/24 in the evening
DATE/TIME OF CONSULTATION: 05/04/24 at 1430
Reason for Consultation: stroke
History of Present Illness:
54-year-old male who presented to [place] originally 3 days ago, found to have complete occlusion of the right ICA and subsequently transferred to [place] for vascular neurosurgery evaluation. He did not have any intervention done there.
Details of his workup are unclear. He he signed out AGAINST MEDICAL ADVICE yesterday morning. He was brought back in by family after his speech seemed more slurred and was having trouble ambulating. He was discharged with dual antiplatelet
therapy. He did not have MRI of the brain at [place]. Unclear if he had an echo done. He is a current smoker, about 1 ppd. No prior h/o stroke or blood clots; no family history of stroke.
History from Dr. Mesa's initial evaluation, 05/01:
'Patient is a right-handed 54-year-old male with a past med history of obesity presented to hospital with left hand weakness and left hemibody paresthesia. He was last known normal last night around 10 PM before going to bed he did notice some of
the symptoms seem to be present with some left hand numbness around 3 AM last night. He woke up this morning was able to get out of bed but did feel significantly dizzy with some feeling of numbness on the left hand and arm. 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
He noticed that in the morning he was having dropping objects and was not able to use his left hand properly.
Patient has no history of TIA or stroke does not take any blood thinners he had been recommended for taking antihypertensives but chose not to pursue this. Currently no headache. No history of any visual issues on the right or left eyes. '
Past Medical History:
Essential HTN
Guillian Lock� syndrome,
L5-S1 herniated disc
Lymph node removed from neck
Ongoing smoking
Past Surgical History: lymph node resection
Social History
Tobacco: Smoker
Alcohol: None
Drug: None
Family History
Family History: Not pertinent
Allergies
No Known Allergies Allergy (Verified 05/03/24 19:04)
Home Medications
�Medication �Instructions �Recorded
calcium carbonate 600 mg-vitamin 1 tab PO DAILY Supplement 05/01/24
D3 5 mcg (200 unit) tablet
[id number]-ytyyudal-slsiuc tablet 1 tab PO DAILY Supplement 05/01/24
aspirin 81 mg chewable tablet 81 mg PO DAILY 05/03/24
atorvastatin 80 mg tablet 80 mg PO QPM 05/03/24
clopidogrel 75 mg tablet 75 mg PO DAILY 05/03/24
ibuprofen 200 mg tablet (Advil) 600 - 800 mg PO HS 05/03/24
lisinopril 10 mg tablet 10 mg PO DAILY 05/03/24
nicotine (polacrilex) 2 mg gum 2 mg buccal Q3HPRN PRN smoking 05/03/24
cessation
nicotine 21 mg/24 hr daily 1 patch transdermal DAILY 05/03/24
transdermal patch
Review of Symptoms:
Patient denies any fever, headache, chest pain, shortness of breath, GI or symptoms.
�Per the HPI.�All systems are reviewed negative except above.
Vital Signs
Temp Pulse Resp BP Pulse Ox
97.8 F 69 16 174/85 99
05/04/24 11:48 05/04/24 11:48 05/04/24 11:48 05/04/24 11:48 05/04/24 11:48
Lab Results
05/04/24 05:28
05/04/24 05:28
Sodium 139 mmol/L (135-145) 05/04/24 05:28
Potassium 3.8 mmol/L (3.5-5.1) 05/04/24 05:28
BUN 29 mg/dl (9-20) H 05/04/24 05:28
Glucose 109 mg/dl (70-99) H 05/04/24 05:28
Calcium 9.7 mg/dl (8.4-10.2) 05/04/24 05:28
LDL Cholesterol, Calc 114 mg/dl 05/04/24 05:28
Physical Exam:
The patient is afebrile, heart sounds S1 and S2 are regular, and chest is clear to auscultation bilaterally.
NIH Stroke Scale:
I performed the NIH stroke scale on the patient on 05/04/24 at 1500. The patient scored 8 points on the NIH stroke scale assessment, see attached.
Neurologic Examination:
The patient is awake, alert and oriented x 3. He is able to follow commands and answer questions appropriately. There is no aphasia but he does not have mild to moderate dysarthria; avoided eye contact, avoided looking to the right but upon formal
testing had no clear extinction/VF cut. On cranial nerve assessment, pupils are 3 mm bilateral, round and reactive to light and accommodation. Visual vargas are full. Extraocular movements are intact. Facial sensations are intact and bilaterally
symmetrical; +L central CN 7 palsy. Hearing is intact bilaterally to normal conversation volume. Tongue palate and uvula are midline. Sternocleidomastoid strengths are full bilaterally. Motor strengths are full on the right, 4/5 in LLE, at least
3/5 in LUE. Deep tendon reflexes are 2+ bilateral upper and lower extremities and Babinski is absent bilaterally. Diminished sensation to temperature in L face, arm and leg. There was no extinction noted on double simultaneous stimulation.
Coordination diminished in LUE.
Neuro Imaging:
05/01/24, HCT:
There are no focal or acute intracranial abnormalities.
There is mild diffuse cortical atrophy
05/01/24, CTA head/neck:
1). There is complete occlusion of the right internal carotid artery at its origin
2). There is large volume partially calcific atherosclerotic plaque at the left carotid bifurcation associated with approximately 70% stenosis of the left internal carotid artery at its origin
3). The supraclinoid right internal carotid artery reconstitutes via collateral circulation and there is flow in the right anterior and middle cerebral arteries, however, these vessels are decreased in caliber compared with the left consistent with
lower pressures associated with the right internal carotid artery occlusion
Repeat HCT, 05/03/24:
Changes consistent with subacute right MCA distribution infarcts.. New from previous exam.
A preliminary report was provided by [facility]
MRI brain, 05/04/24:
Motion limited exam.
Acute to subacute nonhemorrhagic infarct in the right middle cerebral artery distribution. Similar appearance compared to the head CT from 05/03/2024.
Impression:
DAPHNEY DAVID is a 54 year old M who has presented to the hospital after leaving [place] against medical advice where he was transferred for stroke workup with a complete occlusion of the R ICA; family noted worsening of his original presenting
symptom of dysarthria, prompting them to bring him to do the ED, although he did not notice a change. MRI brain confirms acute to subacute nonhemorrhagic infarct in the right middle cerebral artery distribution with R ICA occlusion.
Patient has the following risk factors for their symptoms: smoking, ICA occlusion, htn
IV Tenecteplase/IAT candidacy: out of the window
Recommendations:
-reviewed imaging results
-get records from recent admission at [place]
-BP goal is normotension.
-continue DAPT x 21 days, then d/c Plavix and continue ASA 81mg daily indefinitely.
- Check hemoglobin A1C. Goal is normoglycemia.
- LDL is 114; continue atorvastatin 80mg qhs. Goal LDL after stroke is <70.
- Check an echocardiogram if this wasn't done at [place].
-PT/OT/ST evaluations
- DVT prophylaxis
-continue neurochecks
-vascular evaluation for L ICA stenosis
Discussed patient care with: patient, family, ER
NIH Stroke Scale
NIH Stroke Score
Date of Subsequent NIH Scale: 05/04/24
Time of Subsequent NIH Scale: 15:00
Level of Consciousness: 0 - Alert
LOC Questions: 0-Answers both correctly
LOC Commands: 0-Performs both correctly
Best Horizontal Gaze: 0-Normal
Visual Vargas: 0=Normal, no visual loss
Facial Palsy: 2=Partial paralysis
Motor - Right Arm: 0=No drift 10 seconds
Motor - Left Arm: 2=Partial vs. gravity
Motor - Right Le-No drift 5 seconds
Motor - Left Le-Drift < 5 seconds
Limb Ataxia: 1-Present in one limb
Sensation: 1-Mild loss
Best Language: 0-No aphasia
Dysarthria: 1-Mild slurring
Extinction and Inattention: 0-No abnormality
Total Score:: 8
[2024-05-04] MEDS: ULTRAM 25 MG PO (16:11)
[2024-05-04 16:15] LABS: Glucose - Point of Care 142 mg/dl (70-99)
--- NOTE | 2024-05-04 16:26 | CM ---
automation engineering manager reviewed patient's chart and met with patient and patient states that he lives in an apartment with his daughter, patient was independent with adl's and ambulation, no dme, patient has a prescription plan and uses [facility] pharmacy, no
primary care physician.
Plan; Physical therapy are recommending acute rehab, patient is agreeable to [facility] acute rehab referral sent, patient will need PM&R consult.
[2024-05-04] MEDS: LIPITOR 80 MG PO (17:34)
[2024-05-04] MEDS: GLUCOPHAGE 500 MG PO (17:34)
[2024-05-04 21:08] LABS: Glucose - Point of Care 119 mg/dl (70-99)
[2024-05-05] VITALS (8 sets, daily range): BP systolic 157–197; BP diastolic 70–93; PULSE 67; BMI 35.3
[2024-05-05] MEDS: ULTRAM 25 MG PO ×2 (05:06→23:34)
[2024-05-05] MEDS: NOVOLOG FLEXPEN-LOW RESISTANCE SC ×2 (08:09→17:18)
--- NOTE | 2024-05-05 08:27 | W.PN.NEURO.1 ---
Addendum entered and electronically signed by Hector Mesa MD 05/05/24 17:13:
I saw and evaluate the patient I reviewed the note by Tiffany Cantu agree the findings the following comments:
54-year-old man who presented to hospital initially on 05/03 with symptoms of speech change and left arm and leg paresthesia he was found to have a right internal carotid occlusion and I recommended transfer to [facility]
where she was transferred, patient says he felt a lot of anxiety and somewhat of a panic and he actually left the hospital against medical advice and went home and went came back to the hospital at the urging of his family due to worsening
neurologic symptoms of speech difficulty and the left arm weakness. No intervention pursued, unclear on if they were going to pursue intervention or if he would be carefully watched with potential for intervention with worsening. Currently not
feeling a lot of nicotine craving, he is considering his options and decisions denies any headache.
Neurologic examination significant for left-sided homonymous hemianopia and mild left-sided hemineglect, left arm weakness dysarthria and left facial weakness.
MRI brain with a right-sided large right MCA ischemic stroke without hemorrhage
CTA of the head and neck with right internal carotid occlusion and 70% left internal carotid stenosis.
Assessment:
Right MCA ischemic stroke most likely atheroembolic in etiology with risk factors of hypertension obesity hyperlipidemia tobacco use.
Asymptomatic left internal carotid stenosis around 70%.
Recommendations
-Goal normotension avoid aggressive normalization of blood pressure however given left-sided internal carotid stenosis along with occluded right internal carotid artery
-Continue on DAPT therapy for a total of 21 days and then return to aspirin 81 mg daily, placing on DAPT therapy given the potential for benefit with stroke prevention from left carotid carotid stenosis along with carotid occlusion on the right,
although has a large infarction I feel that the benefits outweigh the risks of bleeding
-No role in pursuing any intervention of the right carotid artery at this point
-Atorvastatin 80 mg daily
-Stressed the importance of rehab with the goal eventually getting patient back to independent function at home
-Speech physical Occupational Therapy evaluations
-Would have following in the left carotid stenosis by vascular surgery in the outpatient setting with consideration for revascularization although he is asymptomatic on the time period of a couple of months from now
-Nicotine patch
Will follow
Original Note:
Documented by User: Tiffany Ortiz NP 05/05/24 15:21
Today's Communication / Plan
-
.
Neuro Assessment/Plan
Assessment
This is a 54 year old M who has presented to the hospital after leaving [place] against medical advice where he was transferred for stroke workup with a complete occlusion of the R ICA; family noted worsening of his original presenting symptom of
dysarthria on 05/03/24, prompting them to bring him to do the ED, although he did not notice a change. MRI brain confirms acute to subacute nonhemorrhagic infarct in the right middle cerebral artery distribution with R ICA occlusion.
-MRI Brain 05/04/24: Motion limited exam. Acute to subacute nonhemorrhagic infarct in the right middle cerebral artery distribution. Similar appearance compared to the head CT from 05/03/2024.
-CTA head/neck 05/01/24: There is complete occlusion of the right internal carotid artery at its origin. There is large volume partially calcific atherosclerotic plaque at the left carotid bifurcation associated with approximately 70% stenosis of
the left internal carotid artery at its origin. The supraclinoid right internal carotid artery reconstitutes via collateral circulation and there is flow in the right anterior and middle cerebral arteries, however, these vessels are decreased in
caliber compared with the left consistent with lower pressures associated with the right internal carotid artery occlusion.
I. Subacute R MCA distribution ischemic infarct.
II. R ICA occlusion.
III. L ICA 70% stenosis, asymptomatic.
Plan
-Continue DAPT with aspirin 81mg and Plavix 75mg x 21 days. After 21 days discontinue Plavix and continue ASA 81mg daily only, indefinitely.
-Goal normotension.
-TTE pending.
-Vascular surgery evaluation for L ICA stenosis.
-Goal normoglycemia, hbA1c is 7.6.
-LDL goal <70. LDL is 114; continue newly initiated atorvastatin 80mg daily.
-NIHSS and neurological checks per unit guidelines.
-Provide patient with a stroke education packet.
-PT/OT/ST evaluations
- DVT prophylaxis
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
Subjective/Objective
Subjective Data
Date of Service: May 05, 2024
No acute events overnight. Patient endorses ongoing dysarthria, LUE weakness, and left-sided decreased sensation. He denies any headache, dizziness, swallowing difficulty, nausea, chest pain, palpitations, and shortness of breath.
Objective Data
Vital Signs
Temp Pulse Resp BP Pulse Ox
97.5 F 56 20 170/76 99
05/05/24 07:15 05/05/24 07:15 05/05/24 07:15 05/05/24 07:15 05/05/24 07:15
Lab Results
05/04/24 05:28
05/04/24 05:28
Sodium 139 mmol/L (135-145) 05/04/24 05:28
Potassium 3.8 mmol/L (3.5-5.1) 05/04/24 05:28
BUN 29 mg/dl (9-20) H 05/04/24 05:28
Glucose 109 mg/dl (70-99) H 05/04/24 05:28
Calcium 9.7 mg/dl (8.4-10.2) 05/04/24 05:28
LDL Cholesterol, Calc 114 mg/dl 05/04/24 05:28
Patient Allergies
No Known Allergies Allergy (Verified 05/03/24 19:04)
LDL Level: >70, statin ordered
Review of Systems
-
History Source: Patient
EENT: Negative Blurry Vision, Decreased Vision or Swallowing Difficulty
Respiratory: Negative Cough or Trouble Breathing
Cardiac: Negative Chest Pain or Palpitations
Abdomen/GI: Negative Nausea
Neuro: Weakness, Numbness and Speech Problem; Negative Dizzy, Headache, Ataxia or Tremors
Physical Exam
-
General: Well Developed, Well Nourished and No Apparent Distress
Eyes: No Ptosis and PERRLA
HEENT: Normocephalic and Atraumatic
Neck: Full Range of Motion
Respiratory: No Dyspnea
GI: Non-distended
Extremities: No Clubbing, No Cyanosis and No Edema
Psych: Unremarkable
Extended Neurological Exam
Mood & Affect: Mood Unremarkable and Affect Unremarkable
Attention Span & Concentration: Awake, Alert and Interactive
Memory: Unremarkable (AAOx3) and Able to Recall
Tremor: Hand Tremor Absent and Head Tremor Absent
Involuntary Movement: None
Speech: Quantity Unremarkable, Rate of Production Unremarkable and Dysarthric
Cranial Nerve II: Left Eye: Pupillary Reactivity Unremarkable, Pupillary Size Unremarkable and Visual Vargas Intact (left vision neglect but visual vargas intact)
Cranial Nerve II: Right Eye: Pupillary Reactivity Unremarkable, Pupillary Size Unremarkable and Visual Vargas Intact (left vision neglect but visual vargas intact)
Cranial Nerves III, IV, : Extraocular Movement: Extraocular Movement Full in all Directions
Cranial Nerve V: Facial Sensation: Reduced (on the left)
Cranial Nerve VII: Facial Symmetry: Reduced (left facial droop)
Cranial Nerve VIII: Hearing: Unremarkable Hearing to Normal Conversational Volume
Cranial Nerve XII: Tongue Protusion: Deviation to Left
Muscle Strength, Overall: Reduced on Left (LUE 3/5, LLE 5-/5)
Muscle Bulk & Tone: Bulk Unremarkable and Tone Unremarkable
Pronator Drift: Drift in Left Upper Extremity and No Drift in Lower Extremities
Touch Sensation: Double Simultaneous Stimulation Absent (left neglect)
Coordination: Dltl-Qvgj-Jxsr movements intact bilaterally and Other (HOANG LUE, RUE intact)
Babinski Sign: Absent Bilaterally
Modified English Score (MRS)
-
Modified Kathie Scale (mRS): Moderate disability. Requires some help, able to walk unassisted.
Score: 3
Data Reviewed
-
CT-A: Report Reviewed and Image Reviewed
CT Head: Report Reviewed and Image Reviewed
MRI Head: Report Reviewed and Image Reviewed
Labs: Report Reviewed
Lipid Profile: Report Reviewed
HgbA1C: Report Reviewed
Reviewed with: Physician and Patient
Medications
-
Active Medications
Generic Name Dose Route Start Last Admin
Trade Name Freq PRN Reason Stop Dose Admin
Acetaminophen 650 mg 05/03/24 23:03
Acetaminophen 650 Mg Rectal Suppository RECTAL 05/31/24 23:02
Q4HPRN PRN
MARTEL, mild pain, or temp >100.4F
Acetaminophen 650 mg 05/03/24 23:03
Acetaminophen 325 Mg Tablet PO 05/31/24 23:02
Q4HPRN PRN
MARTEL, mild pain, or temp >100.4F
Aspirin 81 mg 05/04/24 08:00 05/04/24 08:05
Aspirin 81 Mg Chewable Tablet PO 06/01/24 07:59 81 mg
DAILY ZULEYKA Administration
Atorvastatin Calcium 80 mg 05/04/24 18:00 05/04/24 17:34
Atorvastatin (Lipitor) 80 Mg Tablet PO 06/01/24 17:59 80 mg
QPM ZULEYKA Administration
Calcium/Vitamin D 600 mg 05/04/24 08:00 05/04/24 08:06
Calcium Carbonate 500 Mg/Vitamin D 5 Mcg (200 Units) Tablet PO 06/01/24 07:59 600 mg
DAILY ZULEYKA Administration
Clopidogrel Bisulfate 75 mg 05/04/24 08:00 05/04/24 08:07
Clopidogrel 75 Mg Tablet PO 06/01/24 07:59 75 mg
DAILY ZULEYKA Administration
Dextrose 12.5 grams 05/03/24 23:03
Dextrose 50% (0.5 Grams/Ml) 50 Ml Syringe IV 05/31/24 23:02
[id number] PRN
hypoglycemia
Protocol
Glucagon 1 mg 05/03/24 23:03
Glucagon 1 Mg Vial IM 05/31/24 23:02
PRN PRN
hypoglycemia
Protocol
Insulin Aspart 0 units 05/04/24 07:30 05/05/24 08:09
Insulin Aspart Low Resistance 300 Units/3 Ml Pen.Injctr SC 06/01/24 07:29 Not Given
AC ZULEYKA
Protocol
Lisinopril 10 mg 05/04/24 20:00 05/04/24 20:37
Lisinopril 10 Mg Tablet PO 06/01/24 19:59 10 mg
BID ZULEYKA Administration
Metformin HCl 500 mg 05/04/24 17:00 05/04/24 17:34
Metformin 500 Mg Regular Release Tablet PO 06/01/24 16:59 500 mg
BID@0800,1700 ZULEYKA Administration
Multivitamins Therapeutic 1 tablet 05/04/24 08:00 05/04/24 08:08
Multivitamin Tablet PO 06/01/24 07:59 1 tablet
DAILY ZULEYKA Administration
Nicotine 21 mg 05/04/24 08:00 05/04/24 08:05
Nicotine 21 Mg Patch TRANSDERM 06/01/24 07:59 21 mg
DAILY ZULEYKA Administration
Nicotine Polacrilex 2 mg 05/03/24 23:03
Nicotine 2 Mg Chewing Gum PO 05/31/24 23:02
Q3HPRN PRN
smoking cessation
Sodium Chloride 0 flush 05/03/24 23:00
Sodium Chloride 0.9% (Flush) Syringe IV 05/31/24 22:59
PER PROTOCOL ZULEYKA
Tramadol HCl 25 mg 05/04/24 15:53 05/05/24 05:06
Tramadol Hcl 50 Mg Tablet PO 06/01/24 15:52 25 mg
Q6HPRN PRN Administration
moderate pain
Home Medications
�Medication �Instructions �Recorded
calcium carbonate 600 mg-vitamin 1 tab PO DAILY Supplement 05/01/24
D3 5 mcg (200 unit) tablet
huzjjxqbddcl-hhhdbhde-qgoswm tablet 1 tab PO DAILY Supplement 05/01/24
aspirin 81 mg chewable tablet 81 mg PO DAILY 05/03/24
atorvastatin 80 mg tablet 80 mg PO QPM 05/03/24
clopidogrel 75 mg tablet 75 mg PO DAILY 05/03/24
ibuprofen 200 mg tablet (Advil) 600 - 800 mg PO HS 05/03/24
lisinopril 10 mg tablet 10 mg PO DAILY 05/03/24
nicotine (polacrilex) 2 mg gum 2 mg buccal Q3HPRN PRN smoking 05/03/24
cessation
nicotine 21 mg/24 hr daily 1 patch transdermal DAILY 05/03/24
transdermal patch
NIH Stroke Score
Subsequent NIH Scale
Date of Subsequent NIH Scale: 05/05/24
Time of Subsequent NIH Scale: 09:30
NIH Stroke Score
Level of Consciousness: 0 - Alert
LOC Questions: 0-Answers both correctly
LOC Commands: 0-Performs both correctly
Best Horizontal Gaze: 0-Normal
Visual Vargas: 0=Normal, no visual loss (left vision neglect but visual vargas intact)
Facial Palsy: 2=Partial paralysis
Motor - Right Arm: 0=No drift 10 seconds
Motor - Left Arm: 1=Drift < 10 seconds
Motor - Right Le-No drift 5 seconds
Motor - Left Le-No drift 5 seconds
Limb Ataxia: 0-Absent
Sensation: 1-Mild loss
Best Language: 0-No aphasia
Dysarthria: 1-Mild slurring
Extinction and Inattention: 2-Total sergey inattention
Total Score:: 7
Modified English (mRS) Score
Modified English Scale (mRS): Moderate disability. Requires some help, able to walk unassisted.
Score: 3

Documented by User: Hector Mesa MD 05/05/24 17:05
Modified English Score (MRS)
-
Score: 3
NIH Stroke Score
NIH Stroke Score
Total Score:: 7
Modified Kathie (mRS) Score
Score: 3
[2024-05-05] MEDS: GLUCOPHAGE 500 MG PO ×2 (08:54→17:18)
[2024-05-05] MEDS: OSCAL 500 + D 600 MG PO (08:55)
[2024-05-05] MEDS: THERAGRAN 1 TABLET PO (08:55)
[2024-05-05] MEDS: ZESTRIL 10 MG PO ×2 (08:55→19:47)
[2024-05-05] MEDS: NICODERM TRANSDERMAL 21 MG TRANSDERM (08:55)
[2024-05-05] MEDS: PLAVIX 75 MG PO (08:55)
[2024-05-05] MEDS: LOW STRENGTH ASPIRIN 81 MG PO (08:55)
[2024-05-05 09:55] LABS: Glucose - Point of Care 143 mg/dl (70-99)
--- NOTE | 2024-05-05 10:14 | CON.VAS ---
Addendum entered and electronically signed by Kenneth Simmons III, MD 05/05/24 13:33:
This patient was seen and examined with CHEYENNE Hightower. I agree with the history and physical exam as well as the assessment and plan. I have the following additions:
Events of previous admission, transfer and readmission to noted
Right carotid occlusion with MCA stroke
High-grade stenosis of the proximal left internal carotid artery which is currently asymptomatic
I personally reviewed the CT angiogram images.
Obtain baseline carotid duplex. Continue medical therapy
Follow-up with me in the office after discharge to discuss carotid intervention for asymptomatic left carotid stenosis.
Signed:
Kenneth Simmons III, MD
[facility]
[phone] (blzi)
Original Note:
Consultation
Consultation Request
Performing Provider: Iris
Reason for Consultation: Carotid artery stenosis/occlusion
Medical History
-
Chief Complaint: Left-sided weakness, slurring, balance issue
History of Present Illness:
54-year-old male originally admitted on 05/01/2024 for CVA workup with symptoms of acute left arm and leg paresthesias. Patient was found to have complete occlusion of the right ICA by CTA. Head CT was negative at that time. On 05/02/2024 patient
was transferred to [place] for neurosurgery evaluation.
On 05/03/2024 patient signed out AMA from [place] in the morning. Once the patient was home he began having more speech slurring and balance issues per his family and was brought back to [facility] ER that night. New head CT showed
changes with subacute right MCA infarct. Brain MRI showed similar acute/subacute right MCA infarct.
Vascular consult for CTA findings of complete occlusion of the right ICA and 70% stenosis of the left ICA.
Patient seen at bedside this a.m. with Dr. Simmons. During our assessment patient admits to one instance of amaurosis in the past few weeks but he could not remember which eye. He continues to have a slight left facial droop, slower speech and left
arm weakness.
Past Medical History
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
Past Surgical History: Other (Lymph node resection)
Social History
Tobacco: Smoker
Drug: None
Family History
Family History: Reviewed & Not Pertinent
Allergies / Home Medications
Allergy/AdvReac Type Severity Reaction Status Date / Time
No Known Allergies Allergy Verified 05/03/24 19:04
�Medication �Instructions �Recorded �Confirmed �Type
calcium carbonate 600 mg-vitamin 1 tab PO DAILY Supplement 05/01/24 05/03/24 History
D3 5 mcg (200 unit) tablet
ixjxaaxzmdyc-jefhjweb-sznbqi tablet 1 tab PO DAILY Supplement 05/01/24 05/03/24 History
aspirin 81 mg chewable tablet 81 mg PO DAILY 05/03/24 05/03/24 History
atorvastatin 80 mg tablet 80 mg PO QPM 05/03/24 05/03/24 History
clopidogrel 75 mg tablet 75 mg PO DAILY 05/03/24 05/03/24 History
ibuprofen 200 mg tablet (Advil) 600 - 800 mg PO HS 05/03/24 05/03/24 History
lisinopril 10 mg tablet 10 mg PO DAILY 05/03/24 05/03/24 History
nicotine (polacrilex) 2 mg gum 2 mg buccal Q3HPRN PRN smoking 05/03/24 05/03/24 History
cessation
nicotine 21 mg/24 hr daily 1 patch transdermal DAILY 05/03/24 05/03/24 History
transdermal patch
Review of Systems
-
History Source: Patient
All other systems: Negative unless noted
Constitutional: Reports No Symptoms
EENT: Reports No Symptoms
Respiratory: Reports No Symptoms
Cardiac: Reports No Symptoms
Vascular: Denies Leg Pain / Claudication
Abdomen/GI: Reports No Symptoms
Musculoskeletal: Reports No Symptoms
Skin: Reports No Symptoms
Neurological: Reports Weakness and Other (Off-balance/slurred speech)
Endocrine: Reports No Symptoms
Physical Exam
Vital Signs
Temp Pulse Resp BP Pulse Ox
97.5 F 56 20 170/76 99
05/05/24 07:15 05/05/24 07:15 05/05/24 07:15 05/05/24 07:15 05/05/24 07:15
Lab Results
05/04/24 05:28
05/04/24 05:28
Physical Exam
General: No Apparent Distress
HEENT: Normocephalic and Atraumatic
Respiratory: Non Labored Respirations
Cardiac: Negative JVD
GI: Soft, Non Tender and Other (Obese)
Skin: Warm
Neuro: Awake, Alert, Oriented and Other (Left arm drift, left facial droop)
Psych: Calm
Pulses: Bilateral Posterior Tibial: +2
Assessment / Plan
-
54-year-old male with new right MCA infarct, occlusion of the R ICA, and 70% stenosis of the left ICA
Left-sided paresthesias which go along with the right-sided stroke
Plan:
-Carotid ultrasound for baseline
-Patient can follow-up with us in the office for left carotid surgery plan when recovered from current stroke
Data Reviewed
-
CT Scan: Discussed with Patient
--- NOTE | 2024-05-05 10:58 | W.PN.HOSP.TC ---
Today's Communication/Plan
-
PM&R consult
Continue with PT OT
Await vascular surgery input.
Assessment / Plan
Assessment / Plan
Slurred speech and left sided hemiparesis secondary to acute to subacute nonhemorrhagic infarct in the right MCA distribution. Stroke is at least 3 days old prior to presentation. He initially presented at outside hospital 05/01/2024 and was sent
to [facility] because of complete right ICA occlusion. There was also 70% left-sided ICA stenosis.
patient was discharged AMA and came back to the hospital because of worsening slurred speech which may be secondary to recrudescence of speech issue.
Non new neurological symptoms
CW DAPT, statins
Goal is normotension start aspirin and lisinopril which we will uptitrate as needed.
Started on Metfromin for HbA1C 7.6. Follow-up blood sugars. Goal is normoglycemia
Rmains in SR on monitor
Vascular surgery eval for Left ICA stenosis
Advised against tobacco smoking
PT/OT eval
PM&R consult for acute rehab
Anticipated Discharge: 24 - 48 hours
Subjective/Interval History
-
Date of Service: May 05, 2024
No new events overnight. Remains weak on the left side.
Objective Data
-
Vital Signs:
Vital Signs
Temp Pulse Resp BP Pulse Ox
97.5 F 56 20 170/76 99
05/05/24 07:15 05/05/24 07:15 05/05/24 07:15 05/05/24 07:15 05/05/24 07:15
I&O
05/04/24 05/05/24 05/06/24
06:59 06:59 06:59
Intake Total 240 / 240 840 / 840
Balance 240 / 240 840 / 840
Review of Systems
-
Respiratory: Denies Trouble Breathing
Cardiac: Denies Chest Pain or Palpitations
Abdomen/GI: Denies Nausea
Neuro: Denies Dizzy
Physical Exam
-
General: No Apparent Distress
HEENT: Moist Mucous Membranes
Respiratory: Clear to Auscultation
Cardiac: Regular Rhythm ( No arrhythmias on the monitor) and S1/S2
Neuro: AO x 3 and Facial Droop ( on left side as before); Negative No Motor Deficits ( left-sided hemiparesis as before)
Psych: Calm; Negative Confused
Data Reviewed
-
MRI: Report Reviewed by me ( MRI brain and MRI head and neck scans noted)
Labs: Labs Reviewed by me
[2024-05-05 11:52] LABS: Glucose - Point of Care 150 mg/dl (70-99)
--- NOTE | 2024-05-05 12:10 | CARDSERVLU ---
Echocardiogram with [facility] completed after protocol screening completed. Allergies verified.
Patent IV site: _R AC____
IV site flushed with 0.9% NaCl pre and post administration.
Diluted bolus method utilized to enhance visualization of ventricular zayas.
Total volume given: __2__ mL
Patient tolerated all procedures well without complications.
--- NOTE | 2024-05-05 12:30 | CM ---
Referral sent to [facility] at [facility], waiting on PM&R evaluation and recommendation, pain will need Auth for acute rehab, PT/OT and Speech.
Plan; To await PM&R evaluation.
[2024-05-05] MEDS: NOVOLOG FLEXPEN-LOW RESISTANCE 1 UNITS SC (13:08)
[2024-05-05] MEDS: APRESOLINE 5 MG IV ×2 (15:24→19:48)
[2024-05-05 17:17] LABS: Glucose - Point of Care 144 mg/dl (70-99)
[2024-05-05] MEDS: LIPITOR 80 MG PO (17:18)
[2024-05-05 21:08] LABS: Glucose - Point of Care 118 mg/dl (70-99)
[2024-05-06] VITALS (8 sets, daily range): BP systolic 121–187; BP diastolic 68–90; PULSE 74; O2SAT 97
[2024-05-06] MEDS: APRESOLINE 5 MG IV ×3 (06:48→23:34)
[2024-05-06 07:16] LABS: Glucose - Point of Care 121 mg/dl (70-99)
[2024-05-06] MEDS: NOVOLOG FLEXPEN-LOW RESISTANCE SC ×2 (08:20→17:45)
[2024-05-06] MEDS: GLUCOPHAGE 500 MG PO ×2 (08:21→17:45)
[2024-05-06] MEDS: PLAVIX 75 MG PO (08:21)
[2024-05-06] MEDS: NICODERM TRANSDERMAL 21 MG TRANSDERM (08:21)
[2024-05-06] MEDS: LOW STRENGTH ASPIRIN 81 MG PO (08:21)
[2024-05-06] MEDS: ZESTRIL 10 MG PO ×2 (08:21→09:55)
[2024-05-06] MEDS: OSCAL 500 + D 600 MG PO (08:21)
--- NOTE | 2024-05-06 08:31 | W.PN.NEURO.1 ---
Today's Communication / Plan
-
-DAPT therapy with aspirin and clopidogrel for 21 days total end date of clopidogrel will be 05/22 and continue on aspirin 81 mg indefinitely
-Atorvastatin 80 mg daily
-No role for intervention on the occluded right internal carotid artery
-Would follow the left carotid stenosis in the outpatient, given he has right internal carotid occlusion would consider for revascularization even if asymptomatic in the next several months, waiting at least 1 month before pursuing
-Goal normotension, would avoid aggressive treatment of high blood pressure given he has occluded right internal carotid artery and 70% left internal carotid artery stenosis along with ischemic stroke
-Speech physical Occupational Therapy and physiatry evaluations
-Nicotine patch
-Counseled on recovery, rehab, vascular health
Will follow as needed call with questions and concerns
Neuro Assessment/Plan
Assessment
Assessment:
Right MCA ischemic stroke most likely atheroembolic in etiology with risk factors of hypertension obesity hyperlipidemia tobacco use.
Asymptomatic left internal carotid stenosis around 70%.
Subjective/Objective
Subjective Data
Date of Service: May 06, 2024
No acute events, patient is coping, working on left arm strength and practicing movements, discussed plans for acute rehab for stroke, expectations and timing of stroke recovery he knows it will be a long course is hopeful for improvement
Objective Data
Vital Signs
Temp Pulse Resp BP Pulse Ox
97.9 F 62 17 180/75 95
05/06/24 07:38 05/06/24 07:38 05/06/24 07:38 05/06/24 07:38 05/06/24 07:38
Lab Results
05/04/24 05:28
05/04/24 05:28
Sodium 139 mmol/L (135-145) 05/04/24 05:28
Potassium 3.8 mmol/L (3.5-5.1) 05/04/24 05:28
BUN 29 mg/dl (9-20) H 05/04/24 05:28
Glucose 109 mg/dl (70-99) H 05/04/24 05:28
Calcium 9.7 mg/dl (8.4-10.2) 05/04/24 05:28
LDL Cholesterol, Calc 114 mg/dl 05/04/24 05:28
Patient Allergies
No Known Allergies Allergy (Verified 05/03/24 19:04)
Review of Systems
-
History Source: Patient
All other systems: Reviewed and negative
Constitutional: No Symptoms
EENT: No Symptoms Reported
Respiratory: No Symptoms
Cardiac: No Symptoms
Abdomen/GI: No Symptoms
Genitourinary: No Symptoms
Musculoskeletal: No Symptoms
Skin: No Symptoms
Neuro: Weakness and Speech Problem
Endocrine: No Symptoms
Hematologic / Lymphatic: No Symptoms
Allergy / Immunology: No Symptoms
Physical Exam
-
General: Well Developed
Eyes: No Ptosis
HEENT: Normocephalic
Neck: No Bruits Bilaterally
Respiratory: Clear to Auscultation
Cardiac: Regular Rhythm
GI: Normal Bowel Sounds
Extremities: No Clubbing
Psych: Unremarkable
Extended Neurological Exam
Mood & Affect: Mood Unremarkable and Affect Unremarkable
Attention Span & Concentration: Awake, Alert, Interactive and Other (Some mild sided sergey-neglect, recognizes own arm)
Memory: Reduced
Involuntary Movement: None
Speech: Quality Unremarkable, Quantity Unremarkable and Dysarthric; Negative Expressive Aphasia or Receptive Aphasia
Cranial Nerve II: Left Eye: Pupillary Reactivity Unremarkable, Pupillary Size Unremarkable and Other (Was able to detect finger motion and count fingers appropriately on left hemifield today not showing visual neglect on today's exam)
Cranial Nerve II: Right Eye: Pupillary Reactivity Unremarkable, Pupillary Size Unremarkable and Other (Was able to detect finger motion and count fingers appropriately on left hemifield today not showing visual neglect on today's exam)
Cranial Nerves III, IV, : Extraocular Movement: Extraocular Movement Full in all Directions
Muscle Strength, Overall: Other (Left arm 3/5 strength, left leg 4+/5 hip flexion)
Pronator Drift: Drift in Left Upper Extremity
Touch Sensation: Other (Anesthesia no sensation to light touch on left arm and leg)
[2024-05-06] MEDS: THERAGRAN 1 TABLET PO (09:47)
--- NOTE | 2024-05-06 10:38 | CM ---
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 Will submit to insurance for Auth for acute rehab.
Plan; Acute rehab placement at [facility].
[2024-05-06 10:58] LABS: Glucose - Point of Care 151 mg/dl (70-99)
--- NOTE | 2024-05-06 12:04 | W.PN.HOSP.TC ---
Today's Communication/Plan
-
Await most rehab eval
DC planning
Assessment / Plan
Assessment / Plan
Slurred speech and left sided hemiparesis secondary to acute to subacute nonhemorrhagic infarct in the right MCA distribution. Stroke is at least 3 days old prior to presentation. He initially presented at outside hospital 05/01/2024 and was sent
to [facility] because of complete right ICA occlusion. There was also 70% left-sided ICA stenosis.
patient was discharged AMA and came back to the hospital because of worsening slurred speech which may be secondary to recrudescence of speech issue.
Non new neurological symptoms
CW DAPT, statins
Goal is normotension started lisinopril which we will uptitrate today. Aim to avoid aggressive normalization due to Carotid dz.
Started on Metfromin for HbA1C 7.6. Follow-up blood sugars. Goal is normoglycemia
SR on monitor
Vascular surgery eval for Left ICA stenosis noted -follow as OP
Advised against tobacco smoking
PT/OT eval
PM&R consult for acute rehab pending
Medially stable for DC to rehab when bed available
Anticipated Discharge: Today
Subjective/Interval History
-
Date of Service: May 06, 2024
No new symptoms.
Objective Data
-
Vital Signs:
Vital Signs
Temp Pulse Resp BP Pulse Ox
98.0 F 77 17 121/68 97
05/06/24 11:25 05/06/24 11:25 05/06/24 11:25 05/06/24 11:25 05/06/24 11:25
I&O
05/05/24 05/06/24 05/07/24
06:59 06:59 06:59
Intake Total 840 / 840 720 / 720
Balance 840 / 840 720 / 720
Review of Systems
-
Constitutional: Denies Fever
Respiratory: Denies Cough or Trouble Breathing
Cardiac: Denies Chest Pain
Abdomen/GI: Denies Abdominal Pain, Nausea or Vomiting
Neuro: Reports Weakness (On left side as before. No worse.); Denies Dizzy
Physical Exam
-
General: Comfortable
Respiratory: Clear to Auscultation
Cardiac: Regular Rhythm and S1/S2
GI: Soft and Nontender
Neuro: AO x 3; Negative No Motor Deficits (Left hemiparesis and left facial droop)
Psych: Calm; Negative Confused
Data Reviewed
-
Labs: Labs Reviewed by me
[2024-05-06] MEDS: NOVOLOG FLEXPEN-LOW RESISTANCE 1 UNITS SC (12:22)
[2024-05-06 16:27] LABS: Glucose - Point of Care 127 mg/dl (70-99)
[2024-05-06] MEDS: LIPITOR 80 MG PO (17:45)
[2024-05-06] MEDS: ZESTRIL 20 MG PO (19:53)
[2024-05-06 21:27] LABS: Glucose - Point of Care 125 mg/dl (70-99)
[2024-05-06] MEDS: ULTRAM 25 MG PO (22:13)
[2024-05-07] VITALS (8 sets, daily range): BP systolic 148–189; BP diastolic 66–94; PULSE 85; O2SAT 100
--- NOTE | 2024-05-07 06:46 | DOWNTIME ---
There was a [employer] Client Contract Preparer Downtime on 05/07/2024 from 0100 to 05/07/2024 at 0337. Downtime documentation of patient's care, including medication administrations, has been reconciled in the electronic record per guidelines. Refer to the
patient's paper chart under the miscellaneous tab to see printed paper medication records and downtime forms.
[2024-05-07 07:42] LABS: Glucose - Point of Care 139 mg/dl (70-99)
[2024-05-07] MEDS: THERAGRAN 1 TABLET PO (07:56)
[2024-05-07] MEDS: NOVOLOG FLEXPEN-LOW RESISTANCE SC ×3 (07:56→16:59)
[2024-05-07] MEDS: ZESTRIL 20 MG PO ×2 (07:56→20:01)
[2024-05-07] MEDS: GLUCOPHAGE 500 MG PO ×2 (07:57→16:59)
[2024-05-07] MEDS: NICODERM TRANSDERMAL 21 MG TRANSDERM (07:58)
[2024-05-07] MEDS: OSCAL 500 + D 600 MG PO (07:58)
[2024-05-07] MEDS: PLAVIX 75 MG PO (07:59)
[2024-05-07] MEDS: LOW STRENGTH ASPIRIN 81 MG PO (07:59)
--- NOTE | 2024-05-07 10:49 | W.PN.HOSP.TC ---
Today's Communication/Plan
-
urgent head CT for worsening left-sided weakness
neuro updated
Assessment / Plan
Assessment / Plan
Slurred speech and left sided hemiparesis secondary to acute to subacute nonhemorrhagic infarct in the right MCA distribution.
-Stroke is at least 3 days old prior to presentation. He initially presented at outside hospital 05/01/2024 and was sent to [facility] because of complete right ICA occlusion. There was also 70% left-sided ICA stenosis.
-patient was discharged AMA and came back to the hospital because of worsening slurred speech which may be secondary to recrudescence of speech issue.
-Non new neurological symptoms
-CW DAPT x 21 days (day 5 today), statins
-Goal is normotension; new start Lisinopril
-new start Metformin for new diagnosis DM (see below)
-tobacco cessation counseling
-05/07: patient significantly weaker on left side; yesterday could ambulate with PT and today cannot. cannot lift left arm off chair
-eventual [place]
PT/OT eval
PM&R consult for acute rehab pending
DM
-HbA1C 7.6.
Vascular surgery eval for Left ICA stenosis noted -follow as OP
51 minutes spent on patient evaluation, medical decision making, coordination of care
Anticipated Discharge: 24 - 48 hours
Subjective/Interval History
-
Date of Service: May 07, 2024
patient states he hasn't been sleeping well and has back pain from the bed he's laying in
no fevers/chills
eating, drinking and speaking ok
Objective Data
-
Vital Signs:
Vital Signs
Temp Pulse Resp BP Pulse Ox
97.6 F 78 21 164/88 99
05/07/24 07:28 05/07/24 07:28 05/07/24 07:28 05/07/24 07:28 05/07/24 07:55
I&O
05/06/24 05/07/24 05/08/24
06:59 06:59 06:59
Intake Total 720 / 720 660 / 660
Output Total 1050 / 1050
Balance 720 / 720 -390 / -390
Review of Systems
-
History Source: Patient
All other systems: Reviewed and negative
Physical Exam
-
General: No Apparent Distress
HEENT: PERRLA and Other (right sided facial droop)
Respiratory: Clear to Auscultation; Negative Wheezes
Cardiac: Regular Rhythm and S1/S2
GI: Soft and Nontender
Musculoskeletal: No Edema
Skin: Warm and Dry; Negative Rash
Neuro: AO x 3 and Other (cannot lift left arm up off chair and difficulty flexing left knee; )
Psych: Calm
Data Reviewed
-
Diagnostic Radiology: Report Reviewed by me
Labs: Labs Reviewed by me
--- NOTE | 2024-05-07 10:59 | W.PN.NEURO.1 ---
Today's Communication / Plan
-
-CT head obtained with worsening neurologic exam, no new hemorrhage
-Give 1000 cc normal saline bolus to try to help with perfusion and hydration
-Neuro checks and NIH scales
-Unfortunately no role for any intervention to the right ICA occlusion given an established infarct
-Continue aspirin and clopidogrel for 21 days then aspirin 81 mg daily only
-Atorvastatin 80 mg daily
-PT/OT speech evaluations
Neuro Assessment/Plan
Assessment
Assessment:
Right MCA ischemic stroke most likely atheroembolic in etiology with risk factors of hypertension obesity hyperlipidemia tobacco use.
Initially presented with minor symptoms to our ED and was transferred to [facility] for consideration of thrombectomy, there he was watched but ultimately patient left against medical advice, greatly anxious and went home, returned to ED given family's
seeing him worsen.
MRI brain demonstrated large right MCA ischemic infarction.
Asymptomatic left internal carotid stenosis around 70%.
Worsening left arm and leg weakness 05/07 to point of complete left and and leg hemiplegia. This is most likely result of left internal carotid occlusion and failure of autoregulatory mechanisms. Unfortunately I do not have a rapid therapy that can
correct this, little benefit and significant risk in pursuing removal of right ICA occlusion, no role for urgent intervention on the left ICA stenosis.
Right carotid artery stenosis is contributing to poor flow to the left hemisphere of the brain and inability to compensate for the left ICA occlusion.
Subjective/Objective
Subjective Data
Date of Service: May 07, 2024
Severe worsening of left arm and leg weakness, no headache, discussed getting CT head
Objective Data
Vital Signs
Temp Pulse Resp BP Pulse Ox
97.6 F 78 21 164/88 99
05/07/24 07:28 05/07/24 07:28 05/07/24 07:28 05/07/24 07:28 05/07/24 07:55
Lab Results
05/04/24 05:28
05/04/24 05:28
Sodium 139 mmol/L (135-145) 05/04/24 05:28
Potassium 3.8 mmol/L (3.5-5.1) 05/04/24 05:28
BUN 29 mg/dl (9-20) H 05/04/24 05:28
Glucose 109 mg/dl (70-99) H 05/04/24 05:28
Calcium 9.7 mg/dl (8.4-10.2) 05/04/24 05:28
LDL Cholesterol, Calc 114 mg/dl 05/04/24 05:28
Patient Allergies
No Known Allergies Allergy (Verified 05/03/24 19:04)
Review of Systems
-
History Source: Patient
All other systems: Reviewed and negative
Constitutional: No Symptoms
EENT: No Symptoms Reported
Respiratory: No Symptoms
Cardiac: No Symptoms
Abdomen/GI: No Symptoms
Genitourinary: No Symptoms
Musculoskeletal: No Symptoms
Skin: No Symptoms
Neuro: Weakness and Numbness; Negative Headache
Endocrine: No Symptoms
Hematologic / Lymphatic: No Symptoms
Physical Exam
-
General: No Apparent Distress and Obese
Eyes: No Ptosis
HEENT: Normocephalic
Neck: No Bruits Bilaterally
Respiratory: Clear to Auscultation
Cardiac: Regular Rhythm
GI: Normal Bowel Sounds
Skin: Unremarkable
Extremities: No Cyanosis
Psych: Intact Judgement/Insight; Negative Confused or Agitated
Extended Neurological Exam
Attention Span & Concentration: Awake, Alert, Interactive and Other (Some signs of left sided hemineglect)
Memory: Reduced
Tremor: Hand Tremor Absent
Involuntary Movement: None
Speech: Dysarthric; Negative Expressive Aphasia or Receptive Aphasia
Cranial Nerve II: Left Eye: Pupillary Reactivity Unremarkable and Pupillary Size Unremarkable
Cranial Nerve II: Right Eye: Pupillary Reactivity Unremarkable and Pupillary Size Unremarkable
Cranial Nerves III, IV, : Extraocular Movement: Extraocular Movement Full in all Directions and Other (No gaze deviation)
Cranial Nerve VII: Facial Symmetry: Other (Left facial droop)
Muscle Strength, Overall: Other (Left arm 0/5, left leg 0/4, both flaccid)
Touch Sensation: Other (Absent sensation to light touch left arm and left leg)
Data Reviewed
-
CT-A: Report Reviewed and Image Reviewed
CT Head: Report Reviewed and Image Reviewed
MRI Head: Report Reviewed and Image Reviewed
[2024-05-07 12:28] LABS: Glucose - Point of Care 132 mg/dl (70-99)
[2024-05-07] MEDS: NSS 1000 IV (12:30)
--- NOTE | 2024-05-07 15:03 | CM ---
Patient has been accepted at [facility] tomorrow, Auth [id number] for 7 days Acute rehab, follow up with [facility] at [phone], upper caser spoke with Gianna in admissions at they have a bed for patient.
Plan; Patient to transfer to [facility] tomorrow
Admissions at [facility] has Auth.
[facility] [place]
Report [phone]
--- NOTE | 2024-05-07 15:24 | CON.MD ---
Documented by User: Tasha Conklin PA-C 05/07/24 17:53
Consultation - Medical
-
Referring Provider: Nellie Simon
Chief Complaint: CVA
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
[facility] for consideration of thrombectomy,secondary to complete occlusion of right ICA, there he was watched but ultimately left against medical advice, greatly anxious and went home. He returned to the [facility] due to worsening
slurred speech and trouble ambulating. as a stroke alert with transportation via EMS. MRI brain demonstrated large right MCA ischemic infarction. left internal carotid stenosis around 70% . Today, 05/07, patient with worsening left arm and left leg
weakness with hemiplegia. Repeat CT of head: 05/07- With Evolving right MCA description infarct. No evidence of reperfusion hemorrhage. No new infarct.
Per neurology-Right carotid artery stenosis is contributing to poor flow to the left hemisphere of the brain and inability to compensate for the left ICA occlusion.
Past Medical History: HTN, Guillian Lock� syndrome, L5-S1 herniated disc, Lymph node removed from neck, active smoker
Procedure History: Lymph node removed from neck (patient says related to Guillian Camden- 's)
Family History: cancer. Otherwise , non pertinent
Social History:
Functional Level Premorbidly: Independent with all activities
Functional Level Currently: ADL- Mod and Max Assist, Max Assist of 2 for standing and side steps next to bed.
Tobacco: smoker
Alcohol: Denies
Drug use: Denies
Lives with: family
24-hour assistance available:
Number of floors: first floor apartment
# steps to enter: 3
# steps to second floor: none
Potential First floor set up:yes
Driving: yes
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
�
Allergies:
Allergy/AdvReac Type Severity Reaction Status Date / Time
No Known Allergies Allergy Verified 05/03/24 19:04
Review of Systems:
Constitutional: (x) Normal _
Eye: (x) Normal _
Ear/Nose/Throat: (x) Normal _
Respiratory: (x) Normal _
Cardiovascular: (x) Normal _
Gastrointestinal: (x) Normal _
Genitourinary: (x) Normal _
Musculoskeletal: (x) Normal _
Integumentary: (x) Normal _
Neurologic: (x) cva
Psychiatric: (x) Normal _
Endocrine: (x) Normal _
Hematologic/Lymphatic: (x) Normal _
Allergic/Immunologic: (x) Normal _
Vitals:
Temp Pulse Resp BP Pulse Ox
98.2 F 67 14 166/94 97
05/07/24 14:15 05/07/24 14:15 05/07/24 14:15 05/07/24 14:15 05/07/24 14:15
Height 6 ft 3 in
Actual Weight 128.14 kg
Body Mass Index (BMI) 35.3
Physical Exam:
General Appearance/Observation: Well-developed, well-nourished individual in no apparent distress.
Pain/Comfort Assessment: Denies
Mood/Affect: Appropriate
Integumentary/Operative Site:
�� Pressure Ulcer Evaluation: absent over heels, callouses.
��
�� Other Type of Wound: absent
��
Eyes: Conjunctiva/Lids: normal ��� Pupils: pupils equal round and reactive to light and Accommodation
Ears/Nose/Throat: oral mucosa, somewhat dry,� throat clear, dry.������������ Lips/Teeth/Gums: normal
Neck: No muscle spasm or tenderness
Cardiovascular: Heart: regular, no murmur
Pulses: dorsalis pedis 2+ bilaterally
Respiratory: Respiratory Effort/Chest Expansion: normal ������� Auscultation: Clear to auscultation bilaterally
Gastrointestinal: abdomen not tender, no distension, normal abdominal bowel sounds, ventral hernia noted with straightening up in chair
Genitourinary: No Simmons
Extremities: Edema: None Cyanosis: None Trophic changes: None
Neurology Exam:
Orientation: Alert, Oriented to self, Time, Place
Memory: intact for immediate medical concerns
Higher cortical function
Repetition:impaired
Comprehension: slow processing
Two step command: slow processing,
Naming: intact
Cranial Nerves:
�� CNII: Pupillary light reflex: Intact��� Visual Field: ? left field cut
�� CN III, IV, : Extraocular muscles: Intact
�� CN V: Facial Sensation at Forehead: Intact, Maxilla: Intact, Mandible: Intact
�� CN VII: Facial movement: weakness on the left side
�� CN VIII: Hearing: Normal
�� CN IX/X: Speech & swallow: dysarthric, Position of Uvula: Midline
�� CN XI: Shoulder shrug: weakness on the left
�� CN XII: Tongue protrusion: Midline
Sensory:
�� Light touch: Intact in right upper and lower extremity- no sensation on the left upper and lower extremity
�
Reflexes:
�� Biceps: trace bilaterally
�� Brachioradialis:trace bilaterally
�� Triceps:trace bilaterally
�� Patellar: trace bilaterally
�� Achilles: absent bilaterally
�� Babinski: No response bilaterally
�� Clonus: None
�� Abiola: Negative bilaterally
Cerebellar: Dysmetria/Ataxia: negative on the right, too weak, flaccid on left to test
Musculoskeletal:
Motor: (Manual muscle scale 0-5)
Muscle SA EF WE EE FF FA HF KE DF EHL PF
Right� 5 5 5 5 5 5 5 5 5 5 5
Left 0 0 0 0 0 0 1 2- 0 0 0
Tone: Normal in right UE and LE extremities, flaccid on the left side
Range of Motion: Passively within normal limits in all extremities
Lab Results
Labs
WBC 10.4 10^3/uL (4.8-10.8) 05/04/24 05:28
RBC 4.95 10^6/uL (4.70-6.10) 05/04/24 05:28
Hgb 15.1 g/dL (13.0-18.0) 05/04/24 05:28
Hct 42.7 % (39.0-52.0) 05/04/24 05:28
MCV 86.3 fL (80.0-94.0) 05/04/24 05:28
MCH 30.5 pg (27.0-31.0) 05/04/24 05:
MCHC 35.4 g/dL (33.0-37.0) 05/04/24 05:
RDW 12.9 % (11.5-14.5) 05/04/24 05:28
Plt Count 221 10^3/uL (130-400) 05/04/24 05:28
MPV 11.2 fL (7.4-10.4) H 05/04/24 05:28
Abs Immat Gran (auto) 0.0 10^3/uL (0-0.05) 05/03/24 19:49
Absolute Neuts (auto) 10.4 10^3/uL (1.4-6.5) H 05/03/24 19:49
Absolute Lymphs (auto) 1.8 10^3/uL (1.2-3.4) 05/03/24 19:49
Absolute Monos (auto) 1.0 10^3/uL (0.1-0.6) H 05/03/24 19:49
Absolute Eos (auto) 0.1 10^3/uL (0-0.7) 05/03/24 19:49
Absolute Basos (auto) 0.1 10^3/uL (0-0.2) 05/03/24 19:49
Immature Gran % 0.3 % (0-0.5) 05/03/24 19:49
Neutrophils % 77.5 % (42.2-75.2) H 05/03/24 19:49
Lymphocytes % 13.2 % (20.5-51.1) L 05/03/24 19:49
Monocytes % 7.3 % (1.7-9.3) 05/03/24 19:49
Eosinophils % 1.0 % (0-6) 05/03/24 19:49
Basophils % 0.7 % (0-2) 05/03/24 19:49
Nucleated RBC % 0 % (-) 05/03/24 19:49
Sodium 139 mmol/L (135-145) 05/04/24 05:28
Potassium 3.8 mmol/L (3.5-5.1) 05/04/24 05:28
Chloride 103 mmol/L (98-107) 05/04/24 05:28
Carbon Dioxide 25 mmol/L (22-30) 05/04/24 05:28
BUN 29 mg/dl (9-20) H 05/04/24 05:28
Creatinine 1.1 mg/dL (0.7-1.3) 05/04/24 05:28
Estimated Creat Clear 108 ml/min 05/04/24 05:28
eGFR > 60.00 05/04/24 05:28
Glucose 109 mg/dl (70-99) H 05/04/24 05:28
Hemoglobin A1c 7.6 % (4.0-5.6) H 05/04/24 05:28
Calcium 9.7 mg/dl (8.4-10.2) 05/04/24 05:28
Magnesium 2.4 mg/dl (1.6-2.3) H 05/04/24 05:28
Total Bilirubin Cancelled 05/03/24 20:29
AST Cancelled 05/03/24 20:29
ALT Cancelled 05/03/24 20:29
Alkaline Phosphatase Cancelled 05/03/24 20:29
Total Protein Cancelled 05/03/24 20:29
Albumin Cancelled 05/03/24 20:29
Triglycerides 195 mg/dl (10-149) H 05/04/24 05:28
Total Cholesterol 183 mg/dl (50-199) 05/04/24 05:28
LDL Cholesterol, Calc 114 mg/dl 05/04/24 05:28
VLDL Cholesterol, Calc 39 mg/dl (0-30) H 05/04/24 05:28
HDL Cholesterol 30 mg/dl 05/04/24 05:28
POC Glucose 132 mg/dl (70-99) H 05/07/24 12:27
�
Diagnostic Results: as per HPI
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
MRI with large right MCA ischemic infarction. left internal carotid stenosis around 70% and repeat CT scan of head with evolving infarct without any hemorrhage.
Plan
PT/OT to increase independence with ADLs, improve balance, coordination, endurance, strength, mobility, community reintegration, decreased burden of care on others and family education.
CVA: Per neurogoly ASA 81mg + plavix x 21 days then ASA alone ( today day 5) (SBP less than 180 and diastolic less than 100 to participate with therapy for ischemic stroke). Continue to monitor neurologic status. With worsening weakness on left
side-05/07- repeat CT of head with evolving infarct and no hemorrhage.
Left nondominant hemiparesis: High risk for falls and sliding out of chair/bed. Safety reinforced.
Left sided Neglect: makes patient at increased risk for falls.� Will need therapy to work on scanning of environment for safe navigation.
- Avoid using affected arm to help lift or pull patient as this will cause trauma to the shoulder.
Dysphagia: speech evaluation, oral care protocol, aspiration precautions.� Advance diet as tolerated.
Dysarthria: speech evaluation
HTN: Lisinopril 20mg bid. monitor closely
HLD: Atorvastatin 80mg qd
Coronary artery disease :left internal carotid stenosis 70% and complete occlusion on the right- needed thrombectomy, Aspirin, statin,
Psych: Psychology consult.� Monitor mood,
Skin: monitor for pressure sores/rashes/lesions.
Pain: acetaminophen or Tramadol 25mg as needed.
Bowel: Add -Colace and Senna, PRN bisacodyl- to regular bowel movement
Bladder: Time void, PVRs, PRN straight cath.
Tobacco Abuse: Smoking cessation counseling. Need to find out why smoking whether it is nicotine withdrawal, habit, or oral fixation.
GI Prophylaxis: Pantoprazole
DVT Prophylaxis: mechanical and Lovenox
Pulmonary: Incentive spirometry
Morbid obesity: Continue to pre parole counseling aide patient about diet adjustments to control obesity. Body habitus and increased force to move body and extremities causes further difficulty with functional tasks.
Safety: Continue to reinforce assistance with all transfers.
Code Status:� Full code
Dispo (date/plan/equipment needs): Home with family care.� Social history reviewed.
Functional and Medical Goals: Modified Independent with ADL�s, ambulation, transfers
Discharge Destination: Patient with worsening left sided weakness today with CT scan showing evolving infarct without hemorrhage. Currently functional at Max assist of 2 for standing and side stepping next to bed. Will re-evaluate in couple of days
to reassess degree of deficits with progression of therapy to determine if ideal candidate for acute inpatient rehabilitation.
Summary of recommendations:
CVA: Per neurologly ASA 81mg + plavix x 21 days then ASA alone ( today day 5) (SBP less than 180 and diastolic less than 100 to participate with therapy for ischemic stroke). Continue to monitor neurologic status.
Left nondominant hemiparesis: High risk for falls and sliding out of chair/bed. Safety reinforced. Recommend multi podus boot on the left to prevent pressure injury
Left sided Neglect: makes patient at increased risk for falls.� Will need therapy to work on scanning of environment for safe navigation.
- Avoid using affected arm to help lift or pull patient as this will cause trauma to the shoulder.
Dysphagia: speech evaluation, oral care protocol, aspiration precautions.� Advance diet as tolerated.
Dysarthria: speech evaluation
HTN: continue medications, Lisinopril 20mg bid. Hydralazine IV prn. monitor closely
DM: Metformin. Recommend dietary consult.
Pain: acetaminophen or Tramadol 25mg as needed.
Bowel: Add -Colace and Senna, PRN bisacodyl- to regular bowel movement
Bladder: Time void, PVRs, PRN straight cath.
Tobacco Abuse: Smoking cessation counseling. Need to find out why smoking whether it is nicotine withdrawal, habit, or oral fixation.
GI Prophylaxis: Pantoprazole
DVT Prophylaxis: mechanical and Lovenox
Pulmonary: Incentive spirometry
Safety: Continue to reinforce assistance with all transfers.
Thank you for allowing me to care for your patient. Please contact me with any questions or concerns.
This note was dictated using a voice recognition system. Please excuse any typographical errors from onboarding specialist. If you believe there are any discrepancies, please notify our office.

Documented by User: Regino Gonzalez MD 05/07/24 18:25
Consultation - Medical
-
Referring Provider: Nellie Simon
Chief Complaint: CVA
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
[facility] for consideration of thrombectomy,secondary to complete occlusion of right ICA, there he was watched but ultimately left against medical advice, greatly anxious and went home. He returned to the [facility] due to worsening
slurred speech and trouble ambulating. as a stroke alert with transportation via EMS. MRI brain demonstrated large right MCA ischemic infarction. left internal carotid stenosis around 70% . Today, 05/07, patient with worsening left arm and left leg
weakness with hemiplegia. Repeat CT of head: 05/07- With Evolving right MCA description infarct. No evidence of reperfusion hemorrhage. No new infarct.
Per neurology-Right carotid artery stenosis is contributing to poor flow to the left hemisphere of the brain and inability to compensate for the left ICA occlusion.
Past Medical History: HTN, Guillian Lock� syndrome, L5-S1 herniated disc, Lymph node removed from neck, active smoker
Procedure History: Lymph node removed from neck (patient says related to Guillian Camden- 80s)
Family History: cancer. Otherwise , non pertinent
Social History:
Functional Level Premorbidly: Independent with all activities
Functional Level Currently: ADL- Mod and Max Assist, Max Assist of 2 for standing and side steps next to bed.
Tobacco: smoker
Alcohol: Denies
Drug use: Denies
Lives with: family
24-hour assistance available:
Number of floors: first floor apartment
# steps to enter: 3
# steps to second floor: none
Potential First floor set up:yes
Driving: yes
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
�
Allergies:
Allergy/AdvReac Type Severity Reaction Status Date / Time
No Known Allergies Allergy Verified 05/03/24 19:04
Review of Systems:
Constitutional: (x) Normal _
Eye: (x) Normal _
Ear/Nose/Throat: (x) Normal _
Respiratory: (x) Normal _
Cardiovascular: (x) Normal _
Gastrointestinal: (x) Normal _
Genitourinary: (x) Normal _
Musculoskeletal: (x) Normal _
Integumentary: (x) Normal _
Neurologic: (x) cva
Psychiatric: (x) Normal _
Endocrine: (x) Normal _
Hematologic/Lymphatic: (x) Normal _
Allergic/Immunologic: (x) Normal _
Vitals:
Temp Pulse Resp BP Pulse Ox
98.2 F 67 14 166/94 97
05/07/24 14:15 05/07/24 14:15 05/07/24 14:15 05/07/24 14:15 05/07/24 14:15
Height 6 ft 3 in
Actual Weight 128.14 kg
Body Mass Index (BMI) 35.3
Physical Exam:
General Appearance/Observation: Well-developed, well-nourished individual in no apparent distress.
Pain/Comfort Assessment: Denies
Mood/Affect: Appropriate
Integumentary/Operative Site:
�� Pressure Ulcer Evaluation: absent over heels, callouses.
��
�� Other Type of Wound: absent
��
Eyes: Conjunctiva/Lids: normal ��� Pupils: pupils equal round and reactive to light and Accommodation
Ears/Nose/Throat: oral mucosa, somewhat dry,� throat clear, dry.������������ Lips/Teeth/Gums: normal
Neck: No muscle spasm or tenderness
Cardiovascular: Heart: regular, no murmur
Pulses: dorsalis pedis 2+ bilaterally
Respiratory: Respiratory Effort/Chest Expansion: normal ������� Auscultation: Clear to auscultation bilaterally
Gastrointestinal: abdomen not tender, no distension, normal abdominal bowel sounds, ventral hernia noted with straightening up in chair
Genitourinary: No Simmons
Extremities: Edema: None Cyanosis: None Trophic changes: None
Neurology Exam:
Orientation: Alert, Oriented to self, Time, Place
Memory: intact for immediate medical concerns
Higher cortical function
Repetition:impaired
Comprehension: slow processing
Two step command: slow processing,
Naming: intact
Cranial Nerves:
�� CNII: Pupillary light reflex: Intact��� Visual Field: ? left field cut
�� CN III, IV, : Extraocular muscles: Intact
�� CN V: Facial Sensation at Forehead: Intact, Maxilla: Intact, Mandible: Intact
�� CN VII: Facial movement: weakness on the left side
�� CN VIII: Hearing: Normal
�� CN IX/X: Speech & swallow: dysarthric, Position of Uvula: Midline
�� CN XI: Shoulder shrug: weakness on the left
�� CN XII: Tongue protrusion: Midline
Sensory:
�� Light touch: Intact in right upper and lower extremity- no sensation on the left upper and lower extremity
�
Reflexes:
�� Biceps: trace bilaterally
�� Brachioradialis:trace bilaterally
�� Triceps:trace bilaterally
�� Patellar: trace bilaterally
�� Achilles: absent bilaterally
�� Babinski: No response bilaterally
�� Clonus: None
�� Abiola: Negative bilaterally
Cerebellar: Dysmetria/Ataxia: negative on the right, too weak, flaccid on left to test
Musculoskeletal:
Motor: (Manual muscle scale 0-5)
Muscle SA EF WE EE FF FA HF KE DF EHL PF
Right� 5 5 5 5 5 5 5 5 5 5 5
Left 0 0 0 0 0 0 1 2- 0 0 0
Tone: Normal in right UE and LE extremities, flaccid on the left side
Range of Motion: Passively within normal limits in all extremities
Lab Results
Labs
WBC 10.4 10^3/uL (4.8-10.8) 05/04/24 05:28
RBC 4.95 10^6/uL (4.70-6.10) 05/04/24 05:28
Hgb 15.1 g/dL (13.0-18.0) 05/04/24 05:28
Hct 42.7 % (39.0-52.0) 05/04/24 05:28
MCV 86.3 fL (80.0-94.0) 05/04/24 05:28
MCH 30.5 pg (27.0-31.0) 05/04/24 05:28
MCHC 35.4 g/dL (33.0-37.0) 05/04/24 05:28
RDW 12.9 % (11.5-14.5) 05/04/24 05:28
Plt Count 221 10^3/uL (130-400) 05/04/24 05:28
MPV 11.2 fL (7.4-10.4) H 05/04/24 05:28
Abs Immat Gran (auto) 0.0 10^3/uL (0-0.05) 05/03/24 19:49
Absolute Neuts (auto) 10.4 10^3/uL (1.4-6.5) H 05/03/24 19:49
Absolute Lymphs (auto) 1.8 10^3/uL (1.2-3.4) 05/03/24 19:49
Absolute Monos (auto) 1.0 10^3/uL (0.1-0.6) H 05/03/24 19:49
Absolute Eos (auto) 0.1 10^3/uL (0-0.7) 05/03/24 19:49
Absolute Basos (auto) 0.1 10^3/uL (0-0.2) 05/03/24 19:49
Immature Gran % 0.3 % (0-0.5) 05/03/24 19:49
Neutrophils % 77.5 % (42.2-75.2) H 05/03/24 19:49
Lymphocytes % 13.2 % (20.5-51.1) L 05/03/24 19:49
Monocytes % 7.3 % (1.7-9.3) 05/03/24 19:49
Eosinophils % 1.0 % (0-6) 05/03/24 19:49
Basophils % 0.7 % (0-2) 05/03/24 19:49
Nucleated RBC % 0 % (-) 05/03/24 19:49
Sodium 139 mmol/L (135-145) 05/04/24 05:28
Potassium 3.8 mmol/L (3.5-5.1) 05/04/24 05:28
Chloride 103 mmol/L (98-107) 05/04/24 05:28
Carbon Dioxide 25 mmol/L (22-30) 05/04/24 05:28
BUN 29 mg/dl (9-20) H 05/04/24 05:28
Creatinine 1.1 mg/dL (0.7-1.3) 05/04/24 05:28
Estimated Creat Clear 108 ml/min 05/04/24 05:28
eGFR > 60.00 05/04/24 05:28
Glucose 109 mg/dl (70-99) H 05/04/24 05:28
Hemoglobin A1c 7.6 % (4.0-5.6) H 05/04/24 05:28
Calcium 9.7 mg/dl (8.4-10.2) 05/04/24 05:28
Magnesium 2.4 mg/dl (1.6-2.3) H 05/04/24 05:28
Total Bilirubin Cancelled 05/03/24 20:29
AST Cancelled 05/03/24 20:29
ALT Cancelled 05/03/24 20:29
Alkaline Phosphatase Cancelled 05/03/24 20:29
Total Protein Cancelled 05/03/24 20:29
Albumin Cancelled 05/03/24 20:29
Triglycerides 195 mg/dl (10-149) H 05/04/24 05:28
Total Cholesterol 183 mg/dl (50-199) 05/04/24 05:28
LDL Cholesterol, Calc 114 mg/dl 05/04/24 05:28
VLDL Cholesterol, Calc 39 mg/dl (0-30) H 05/04/24 05:28
HDL Cholesterol 30 mg/dl 05/04/24 05:28
POC Glucose 132 mg/dl (70-99) H 05/07/24 12:27
�
Diagnostic Results: as per HPI
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
MRI with large right MCA ischemic infarction. left internal carotid stenosis around 70% and repeat CT scan of head with evolving infarct without any hemorrhage.
Plan
PT/OT to increase independence with ADLs, improve balance, coordination, endurance, strength, mobility, community reintegration, decreased burden of care on others and family education.
CVA: Per neurogoly ASA 81mg + plavix x 21 days then ASA alone ( today day 5) (SBP less than 180 and diastolic less than 100 to participate with therapy for ischemic stroke). Continue to monitor neurologic status. With worsening weakness on left
side-05/07- repeat CT of head with evolving infarct and no hemorrhage.
Left nondominant hemiparesis: High risk for falls and sliding out of chair/bed. Safety reinforced.
Left sided Neglect: makes patient at increased risk for falls.� Will need therapy to work on scanning of environment for safe navigation.
- Avoid using affected arm to help lift or pull patient as this will cause trauma to the shoulder.
Dysphagia: speech evaluation, oral care protocol, aspiration precautions.� Advance diet as tolerated.
Dysarthria: speech evaluation
HTN: Lisinopril 20mg bid. monitor closely
HLD: Atorvastatin 80mg qd
Coronary artery disease :left internal carotid stenosis 70% and complete occlusion on the right- needed thrombectomy, Aspirin, statin,
Psych: Psychology consult.� Monitor mood,
Skin: monitor for pressure sores/rashes/lesions.
Pain: acetaminophen or Tramadol 25mg as needed.
Bowel: Add -Colace and Senna, PRN bisacodyl- to regular bowel movement
Bladder: Time void, PVRs, PRN straight cath.
Tobacco Abuse: Smoking cessation counseling. Need to find out why smoking whether it is nicotine withdrawal, habit, or oral fixation.
GI Prophylaxis: Pantoprazole
DVT Prophylaxis: mechanical and Lovenox
Pulmonary: Incentive spirometry
Morbid obesity: Continue to pre parole counseling aide patient about diet adjustments to control obesity. Body habitus and increased force to move body and extremities causes further difficulty with functional tasks.
Safety: Continue to reinforce assistance with all transfers.
Code Status:� Full code
Dispo (date/plan/equipment needs): Home with family care.� Social history reviewed.
Functional and Medical Goals: Modified Independent with ADL�s, ambulation, transfers
Discharge Destination: Patient with worsening left sided weakness today with CT scan showing evolving infarct without hemorrhage. Currently functional at Max assist of 2 for standing and side stepping next to bed. Will re-evaluate in couple of days
to reassess degree of deficits with progression of therapy to determine if ideal candidate for acute inpatient rehabilitation.
Summary of recommendations:
CVA: Per neurologly ASA 81mg + plavix x 21 days then ASA alone ( today day 5) (SBP less than 180 and diastolic less than 100 to participate with therapy for ischemic stroke). Continue to monitor neurologic status.
Left nondominant hemiparesis: High risk for falls and sliding out of chair/bed. Safety reinforced. Recommend multi podus boot on the left to prevent pressure injury
Left sided Neglect: makes patient at increased risk for falls.� Will need therapy to work on scanning of environment for safe navigation.
- Avoid using affected arm to help lift or pull patient as this will cause trauma to the shoulder.
Dysphagia: speech evaluation, oral care protocol, aspiration precautions.� Advance diet as tolerated.
Dysarthria: speech evaluation
HTN: continue medications, Lisinopril 20mg bid. Hydralazine IV prn. monitor closely
DM: Metformin. Recommend dietary consult.
Pain: acetaminophen or Tramadol 25mg as needed.
Bowel: Add -Colace and Senna, PRN bisacodyl- to regular bowel movement
Bladder: Time void, PVRs, PRN straight cath.
Tobacco Abuse: Smoking cessation counseling. Need to find out why smoking whether it is nicotine withdrawal, habit, or oral fixation.
GI Prophylaxis: Pantoprazole
DVT Prophylaxis: mechanical and Lovenox
Pulmonary: Incentive spirometry
Safety: Continue to reinforce assistance with all transfers.
Thank you for allowing me to care for your patient. Please contact me with any questions or concerns.
Attending Statement:
Patient seen and examined by me this evening at bedside. Discussed with Tasah Conklin PA-C and agree with note, examination and plan as outlined above. Patient did have increased weakness in the left side UE and LE today - CT without any acute
bleed. Certainly functionally worsened and has no active movement in the left side currently. Unsure if any role for repeat MRI brain to evaluate further? Could be just due to further development of R MCA territory infarct. Will need acute
rehabilitation when more medically stable to try and improve mobility, transfers, possibly ambulation, ADL and speech/swallowing progression after the stroke to give chance to get to a functional level or supervision or mod I before discharge home.
Lives in 1 story apartment and daughter reportedly capable of assist at home.
This note was dictated using a voice recognition system. Please excuse any typographical errors from onboarding specialist. If you believe there are any discrepancies, please notify our office.
--- NOTE | 2024-05-07 16:42 | CHAP ---
Attempted to visit Mr. English as requested by speech therapist. He was sleeping soundly. 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
[2024-05-07 16:52] LABS: Glucose - Point of Care 142 mg/dl (70-99)
[2024-05-07] MEDS: LIPITOR 80 MG PO (17:00)
[2024-05-07] MEDS: LOVENOX 40 MG SC (17:01)
--- NOTE | 2024-05-07 17:32 | PTCARENOTE ---
patient offered washing patient refused, RN notified.
[2024-05-07] MEDS: APRESOLINE 5 MG IV (20:05)
[2024-05-07 21:50] LABS: Glucose - Point of Care 131 mg/dl (70-99)
[2024-05-07] MEDS: ULTRAM 25 MG PO (22:25)
[2024-05-08] VITALS (7 sets, daily range): BP systolic 134–200; BP diastolic 64–93; PULSE 69; O2SAT 97–98
[2024-05-08] MEDS: APRESOLINE 5 MG IV (00:21)
--- NOTE | 2024-05-08 07:08 | W.PN.NEURO.1 ---
Today's Communication / Plan
-
-21 days of dual antiplatelet therapy aspirin and clopidogrel, after 21 days stop clopidogrel continue on aspirin monotherapy
-Atorvastatin 80 mg daily
-Nicotine patch
-Aspiration precautions
-PT OT appreciate PMR evaluation
-Follow blood pressure avoid rapid normalization given suspicion for longstanding hypertension
-Minimize sedating medications
-Eventual vascular surgery and neurology follow-up to consider revascularization of significant left carotid stenosis but would wait at least 2 to 3 months before pursuing any operative management
Neuro Assessment/Plan
Assessment
Assessment:
Right MCA ischemic stroke most likely atheroembolic in etiology with risk factors of hypertension obesity hyperlipidemia tobacco use.
Initially presented with minor symptoms to our ED and was transferred to [facility] for consideration of thrombectomy, there he was watched but ultimately patient left against medical advice, greatly anxious and went home, returned to ED given family's
seeing him worsen.
MRI brain demonstrated large right MCA ischemic infarction.
Asymptomatic left internal carotid stenosis around 70%.
Worsening left arm and leg weakness 05/07 to point of complete left and and leg hemiplegia. This is most likely result of left internal carotid occlusion and failure of autoregulatory mechanisms. Little benefit and significant risk in pursuing
removal of right ICA occlusion, no role for urgent intervention on the left ICA stenosis. CT head non contrast showed no hemorrhagic covnersion.
Right carotid artery stenosis is contributing to poor flow to the left hemisphere of the brain and inability to compensate for the left ICA occlusion.
Subjective/Objective
Subjective Data
Date of Service: May 08, [address] scan given worsening left arm and leg weakness, showed known ischemic infarct without hemorrhage. Patient with no headache today, reports some loose stools.
Objective Data
Vital Signs
Temp Pulse Resp BP Pulse Ox
98.0 F 70 20 160/93 93
05/08/24 02:59 05/08/24 04:35 05/08/24 02:59 05/08/24 04:35 05/08/24 02:59
Lab Results
05/04/24 05:28
05/04/24 05:28
Sodium 139 mmol/L (135-145) 05/04/24 05:28
Potassium 3.8 mmol/L (3.5-5.1) 05/04/24 05:28
BUN 29 mg/dl (9-20) H 05/04/24 05:28
Glucose 109 mg/dl (70-99) H 05/04/24 05:28
Calcium 9.7 mg/dl (8.4-10.2) 05/04/24 05:28
LDL Cholesterol, Calc 114 mg/dl 05/04/24 05:28
Patient Allergies
No Known Allergies Allergy (Verified 05/03/24 19:04)
LDL Level: >70, statin ordered
Review of Systems
-
History Source: Patient
All other systems: Reviewed and negative
Constitutional: No Symptoms
EENT: No Symptoms Reported
Respiratory: No Symptoms
Cardiac: No Symptoms
Abdomen/GI: No Symptoms
Genitourinary: No Symptoms
Musculoskeletal: No Symptoms
Skin: No Symptoms
Neuro: Weakness and Speech Problem
Endocrine: No Symptoms
Hematologic / Lymphatic: No Symptoms
Allergy / Immunology: No Symptoms
Physical Exam
-
General: No Apparent Distress and Obese
Eyes: No Ptosis
HEENT: Normocephalic
Neck: No Bruits Bilaterally
Respiratory: Clear to Auscultation
Cardiac: Regular Rhythm
GI: Soft and Non-tender
Skin: Warm and Dry; Negative Rash
Psych: Negative Agitated
Extended Neurological Exam
Attention Span & Concentration: Other (Awakens easily, conversational, oriented to hospital, obeys commands, left sided sergey-neglect apparent)
Memory: Able to Recall
Tremor: Hand Tremor Absent
Involuntary Movement: None
Speech: Dysarthric; Negative Expressive Aphasia or Receptive Aphasia
Cranial Nerve II: Left Eye: Pupillary Reactivity Unremarkable, Pupillary Size Unremarkable and Other (Left sided hemianopia)
Cranial Nerve II: Right Eye: Pupillary Reactivity Unremarkable, Pupillary Size Unremarkable and Other (Left sided hemianopia)
Cranial Nerves III, IV, : Extraocular Movement: Extraocular Movement Full in all Directions
Cranial Nerve VII: Facial Symmetry: Other (Left facial weakness obvious at rest)
Muscle Strength, Overall: Other (2/5 movement of shoulder and left leg hip movements, not able to lift up off bed to any degree)
Touch Sensation: Other (Absent on left arm and leg to light touch)
Data Reviewed
-
CT-A: Report Reviewed and Image Reviewed
CT Head: Report Reviewed and Image Reviewed
MRI Head: Report Reviewed and Image Reviewed
Echocardiogram: Report Reviewed
[2024-05-08 07:28] LABS: Glucose - Point of Care 129 mg/dl (70-99)
[2024-05-08] MEDS: NOVOLOG FLEXPEN-LOW RESISTANCE SC ×2 (07:56→12:12)
[2024-05-08] MEDS: GLUCOPHAGE 500 MG PO (07:58)
[2024-05-08] MEDS: PLAVIX 75 MG PO (07:58)
[2024-05-08] MEDS: ZESTRIL 20 MG PO (07:58)
[2024-05-08] MEDS: THERAGRAN 1 TABLET PO (07:58)
[2024-05-08] MEDS: LOW STRENGTH ASPIRIN 81 MG PO (07:58)
[2024-05-08] MEDS: NICODERM TRANSDERMAL 21 MG TRANSDERM (07:59)
[2024-05-08] MEDS: OSCAL 500 + D 600 MG PO (07:59)
--- NOTE | 2024-05-08 10:31 | CM ---
Addendum entered by Alicja Blair 05/08/24 12:03:
Patient accepted at [facility], auth provided yesterday.
[facility]
Report# [phone]

Original Note:
PMR consultation completed.
Patient with extension of CVA.
Spoke with Gianna from [facility].
Patient to be re-eval in a few days to monitor for improvement and to see if he will be accepted at [facility].
Plan: rehab when able.
--- NOTE | 2024-05-08 11:14 | W.PN.HOSP.TC ---
Today's Communication/Plan
-
see plan
Assessment / Plan
Assessment / Plan
Slurred speech and left sided hemiparesis secondary to acute to subacute nonhemorrhagic infarct in the right MCA distribution.
-Stroke is at least 3 days old prior to presentation. He initially presented at outside hospital 05/01/2024 and was sent to [facility] because of complete right ICA occlusion. There was also 70% left-sided ICA stenosis.
-patient was discharged AMA and came back to the hospital because of worsening slurred speech which may be secondary to recrudescence of speech issue.
-Non new neurological symptoms
-CW DAPT x 21 days (day 6 today), statins
-Goal is normotension; new start Lisinopril
-new start Metformin for new diagnosis DM (see below)
-tobacco cessation counseling
-05/07: patient significantly weaker on left side; yesterday could ambulate with PT and today cannot. cannot lift left arm off chair. repeat head CT without bleed
-appreciate [facility] eval - stated needs to reevaluate if candidate. I sent TT to Dr. Gonzalez today to clarify plan
PT/OT eval
PM&R consult for acute rehab pending
DM
-HbA1C 7.6.
Vascular surgery eval for Left ICA stenosis noted -follow as OP
51 minutes spent on patient evaluation, medical decision making, coordination of care
Anticipated Discharge: Within 24 hours
Subjective/Interval History
-
Date of Service: May 08, 2024
minor improvement LLE; can shoulder shrug left
Objective Data
-
Vital Signs:
Vital Signs
Temp Pulse Resp BP Pulse Ox
98.8 F 64 20 166/76 96
05/08/24 07:59 05/08/24 07:59 05/08/24 07:59 05/08/24 07:59 05/08/24 07:59
I&O
05/07/24 05/08/24 05/09/24
06:59 06:59 06:59
Intake Total 660 / 660 720 / 720
Output Total 1050 / 1050 300 / 300
Balance -390 / -390 420 / 420
Review of Systems
-
History Source: Patient
All other systems: Reviewed and negative
Physical Exam
-
General: No Apparent Distress
HEENT: PERRLA and Other (left sided facial droop)
Respiratory: Clear to Auscultation; Negative Wheezes
Cardiac: Regular Rhythm and S1/S2
GI: Soft and Nontender
Musculoskeletal: No Edema
Skin: Warm and Dry; Negative Rash
Neuro: AO x 3 and Other (cannot lift left arm up off chair and difficulty flexing left knee; )
Psych: Calm
Data Reviewed
-
Diagnostic Radiology: Report Reviewed by me
Labs: Labs Reviewed by me
[2024-05-08 11:57] LABS: Glucose - Point of Care 159 mg/dl (70-99)
--- NOTE | 2024-05-08 12:24 | W.DS.TRANS ---
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
-
Discharge Instructions:
Discharge Diagnosis/Procedures large right MCA ischemic infarction,
asymptomatic left internal carotid stenosis
around 70%.
Diet Low Cholesterol
Activity As tolerated
Driving Restrictions As prior to admission
Bathing Restrictions None
Other Services PT,OT,ST
Instructions:
Stand-Alone Forms:
Changes to Home Medications: Yes
Discharge Medications:
DC Medications w/original date entered in [employer]
calcium carbonate 600 mg-vitamin D3 5 mcg (200 unit) tablet 1 tab PO DAILY Supplement 05/01/24
yqtavnuizjbe-gqcopoql-nuwhdk tablet 1 tab PO DAILY Supplement 05/01/24
aspirin 81 mg chewable tablet 81 mg PO DAILY 05/03/24
atorvastatin 80 mg tablet 80 mg PO QPM 05/03/24
clopidogrel 75 mg tablet 75 mg PO DAILY 05/03/24
lisinopril 10 mg tablet 10 mg PO DAILY 05/03/24
nicotine (polacrilex) 2 mg gum 2 mg buccal Q3HPRN PRN smoking cessation 05/03/24
nicotine 21 mg/24 hr daily transdermal patch 1 patch transdermal DAILY 05/03/24
lisinopril 20 mg tablet 20 mg PO BID #60 tabs 05/08/24
metformin 500 mg tablet 500 mg PO BID@0800,1700 #60 tabs 05/08/24
Home Medication Changes
Lisinopril increased from 10mg daily to 20mg twice a day
New start metformin 500 twice a day
continue Aspirin + Plavix x 21 days total (you have 15 more days of therapy) then aspirin daily as monotherapy
continue Lipitor 80mg in evenings
addition of Tramadol for pain
Pending Results: No
--- NOTE | 2024-05-08 13:15 | W.DCSUMMARY ---
Discharge Summary
Discharge Data
Date of Admission: 05/03/24
Date of Discharge: 05/08/24
-
Pending Results: No
Hospital Course
Discharging Physician : Dr. Nellie Oneal
Disposition : Acute Rehab
Principal Discharge diagnosis : Right MCA Territory Ischemic Stroke
Hospital Course :
Mr. Ayo English is a 54 yo man with hx essential HTN, GBS, L5-S1 herniated disk, tobacco use, recent ER visit 3 days prior for left hand weakness and hemibody paresthesias found to have CVA with CTA showing right ICA occlusion transferred to
[place] where patient left AMA (no intervention done) represents to the ER on 05/06 with increasing slurred speech and difficulty ambulating. He was admitted to medicine with neurology and neurosurgery consulting. Per neurosurgery no role for
intervention of occluded right ICA. He has asymptomatic left ICA stenosis. Per neurology, would consider revascularization in next several months, waiting at least 1 month before pursuing.
Patient had progressive symptoms in-house with repeat CT showing evolving infarct, no bleed.
He is maintained on Asa/Plavix x 21 days (today is day 6). Continue Lipitor 80mg. His lisinopril dosing is increased and he is newly started on metformin for new diagnosis of diabetes (Hg A1c 7.6%).
He is discharged to acute rehab.
Time spent on discharge 35 minutes.
Important imaging findings :
Neuro Imaging:
05/01/24, HCT:
There are no focal or acute intracranial abnormalities.
There is mild diffuse cortical atrophy
05/01/24, CTA head/neck:
1). There is complete occlusion of the right internal carotid artery at its origin
2). There is large volume partially calcific atherosclerotic plaque at the left carotid bifurcation associated with approximately 70% stenosis of the left internal carotid artery at its origin
3). The supraclinoid right internal carotid artery reconstitutes via collateral circulation and there is flow in the right anterior and middle cerebral arteries, however, these vessels are decreased in caliber compared with the left consistent with
lower pressures associated with the right internal carotid artery occlusion
Repeat HCT, 05/03/24:
Changes consistent with subacute right MCA distribution infarcts.. New from previous exam.
A preliminary report was provided by [facility]
MRI brain, 05/04/24:
Motion limited exam.
Acute to subacute nonhemorrhagic infarct in the right middle cerebral artery distribution. Similar appearance compared to the head CT from 05/03/2024.
HEAD CT 05/07
IMPRESSION: Evolving right MCA description infarct. No evidence of reperfusion hemorrhage. No new infarct.
Procedure findings :
Discharge Plan
-
Patient Disposition: Acute Rehab Facility
Discharge Diagnosis/Procedures: large right MCA ischemic infarction, asymptomatic left internal carotid stenosis around 70%.
Condition: Fair
Diet: Low Cholesterol
Activity: As tolerated
Driving Restrictions: As prior to admission
Bathing Restrictions: None
Other Services: PT, OT and ST
Referrals:
Kenneth Simmons III, MD [Active] - 06/05/24 11:00 am
NONE,* [Family Provider] - in less than 1 week
Additional Discharge Medication Instructions: Lisinopril increased from 10mg daily to 20mg twice a day
New start metformin 500 twice a day
continue Aspirin + Plavix x 21 days total (you have 15 more days of therapy) then aspirin daily as monotherapy
continue Lipitor 80mg in evenings
Prescriptions:
New
metformin 500 mg Tablet
500 mg PO BID@0800,1700 Qty: 60 0RF
lisinopril 20 mg Tablet
20 mg PO BID Qty: 60 0RF
tramadol 25 mg tablet
25 mg PO Q6H PRN (Reason: severe pain) Qty: 10 0RF
Continued
calcium carbonate-vitamin D3 600 mg-5 mcg (200 unit) Tablet
1 tab PO DAILY
oqktoosgiafa-rqimlhzc-rkypcj Tablet
1 tab PO DAILY
atorvastatin 80 mg Tablet
80 mg PO QPM
Patient Comments:
05/03/2024, has not started taking this med. yet.
nicotine (polacrilex) 2 mg Gum
2 mg BUCCAL Q3HPRN PRN (Reason: smoking cessation)
Patient Comments:
05/03/2024, has not started taking this med. yet.
clopidogrel 75 mg Tablet
75 mg PO DAILY
Patient Comments:
05/03/2024, has not started taking this med. yet.
lisinopril 10 mg Tablet
10 mg PO DAILY
Patient Comments:
05/03/2024, has not started taking this med. yet.
nicotine 21 mg/24 hr Patch 24 Hour
1 patch TRANSDERMAL DAILY
Patient Comments:
05/03/2024, has not started taking this med. yet.
aspirin 81 mg Tablet,Chewable
81 mg PO DAILY
Patient Comments:
05/03/2024, has not started taking this med. yet.
Discontinued
ibuprofen [Advil] 200 mg Tablet
600 - 800 mg PO HS
Discharge Orders:
Discharge Patient (As Directed); Ordered 05/08/24
Ordered By: Nellie Oneal
Discharge Date and Time
Print Language: KHMER
== END 2024-05-08 14:16 | DRG 65 ==
LOC: 4 WEST ACU 22:13
PROVIDERS: ADMITTING PHYSICIAN Internal Medicine; ATTENDING PHYSICIAN Student in an Organized Health Care Education/Training Program; CONSULT PHYSICIAN Physical Medicine & Rehabilitation; CONSULT PHYSICIAN Psychiatry & Neurology Neurology; EMERGENCY PHYSICIAN Emergency Medicine; OTHER PHYSICIAN Surgery Vascular Surgery
DX: I63.231 Cerebral infarction due to unspecified occlusion or stenosis of right carotid arteries (principal); G81.94 Hemiplegia, unspecified affecting left nondominant side; I10 Essential (primary) hypertension; E11.9 Type 2 diabetes mellitus without complications; I65.22 Occlusion and stenosis of left carotid artery; R29.810 Facial weakness; R47.1 Dysarthria and anarthria; R20.8 Other disturbances of skin sensation; E78.5 Hyperlipidemia, unspecified; M51.27 Other intervertebral disc displacement, lumbosacral region; R13.10 Dysphagia, unspecified; F17.210 Nicotine dependence, cigarettes, uncomplicated; E66.01 Morbid (severe) obesity due to excess calories; Z68.35 Body mass index [BMI] 35.0-35.9, adult; R29.708 NIHSS score 8; R29.707 NIHSS score 7; Z86.69 Personal history of other diseases of the nervous system and sense organs
CPT/HCPCS: 70450; 70551; 80048; 80061; 82962; 83036; 83735; 85025; 85027; 92507; 92523; 92526; 92610; 93005; 93306; 93880; 97110; 97116; 97163; 97167; 97530; 97535; 99285; Q9950

== ENCOUNTER → 2024-11-27 09:47 | Outpatient (REF) | payer OTHER, SELFPAY | LOC: RAD 09:47 | PROVIDERS: ATTENDING PHYSICIAN Surgery Vascular Surgery; FAMILY PHYSICIAN Internal Medicine | DX: I65.29 Occlusion and stenosis of unspecified carotid artery (principal) | CPT/HCPCS: 93880 ==

== ENCOUNTER → 2025-01-01 11:08 | Outpatient (REF) | payer OTHER, SELFPAY | LOC: RAD 11:08 | PROVIDERS: ATTENDING PHYSICIAN Surgery Vascular Surgery; FAMILY PHYSICIAN Family Medicine | DX: I65.29 Occlusion and stenosis of unspecified carotid artery (principal); I65.21 Occlusion and stenosis of right carotid artery; I65.22 Occlusion and stenosis of left carotid artery | CPT/HCPCS: 70496; 70498; Q9967 ==

== ENCOUNTER 2025-01-26 07:07 | Inpatient (IN) | payer OTHER, SELFPAY ==
[2025-01-21 09:34] VITALS: BMI 32.1
[2025-01-21 09:59] LABS: % Basophils 0.9 % (0-2); % Eosinophils 4.1 % (0-6); % Immature Granulocytes 0.2 % (0-0.5); % Lymphocytes 25.2 % (20.5-51.1); % Monocytes 8.6 % (1.7-9.3); Absolute Basophils 0.1 10^3/uL (0-0.2); Absolute Eosinophils 0.3 10^3/uL (0-0.7); Absolute Monocytes 0.7 10^3/uL (0.1-0.6); Absolute Neutrophils 4.9 10^3/uL (1.4-6.5); Hematocrit 40.7 % (39.0-52.0); Hemoglobin 13.7 g/dL (13.0-18.0); Mean Corp Hgb Conc. 33.7 g/dL (33.0-37.0); Mean Corpuscular Hgb 30.4 pg (27.0-31.0); Mean Corpuscular Volume 90.2 fL (80.0-94.0); Mean Platelet Volume 10.2 fL (7.4-10.4); Nucleated Red Blood Cells % 0 % (-); Platelet Count 219 10^3/uL (130-400); Red Blood Cell Count 4.51 10^6/uL (4.70-6.10); Red Cell Dist. Width 13.3 % (11.5-14.5); White Blood Cell Count 8.1 10^3/uL (4.8-10.8)
[2025-01-21 10:09] LABS: INR 0.99; PT 13.5 Sec (11.4-14.6)
[2025-01-21 10:10] LABS: APTT 30.9 Sec (23.4-35.0)
[2025-01-21 10:16] LABS: Blood Urea Nitrogen 24 mg/dl (9-20); Calcium 9.9 mg/dl (8.4-10.2); Carbon Dioxide 30 mmol/L (22-30); Chloride 101 mmol/L (98-107); Estimated Creatinine Clearance > 125 ml/min; Glucose 99 mg/dl (70-99); Potassium 4.5 mmol/L (3.5-5.1); Sodium 140 mmol/L (135-145); eGFR > 60.00
[2025-01-26] VITALS (16 sets, daily range): BP systolic 113–182; BP diastolic 52–84; BMI 32.1; BMI 32.7
--- NOTE | 2025-01-26 08:48 | W.SUR.PREOP ---
Pre-Operative Surgical Note
-
I have examined this patient prior to the performance of the scheduled procedure.
The patient's condition is unchanged from the time of the current History and
Physical and the patient is able to undergo the scheduled procedure.
[2025-01-26 09:44] LABS: ACT-LR - POC 244 Seconds (116-155)
[2025-01-26 09:52] LABS: ACT-LR - POC 247 Seconds (116-155)
[2025-01-26 10:00] LABS: ACT-LR - POC 271 Seconds (116-155)
[2025-01-26 10:35] LABS: ACT-LR - POC 232 Seconds (116-155)
--- NOTE | 2025-01-26 11:09 | OR.RPT ---
Operative Report
Operative Report
Date of Operation: 01/26/2025
Pre Op Diagnosis: High-grade left internal carotid artery stenosis, asymptomatic
Post Op Diagnosis: High-grade left internal carotid artery stenosis, asymptomatic
Procedure: LEFT carotid endarterectomy with patch angioplasty using bovine pericardium
Surgeon: Kenneth Simmons III, MD
Fingernail Former: Bobo Rhodes MD, PGY4
Anesthesia: General
Complications: None
History and Indications for Procedure: 54-year-old male with prior right hemispheric stroke. He has a high-grade left internal carotid artery stenosis and was brought to the operating room for intervention with endarterectomy.
Procedure in Detail: Ayo English was correctly identified and placed supine on the operating table. After adequate induction of anesthesia the left neck was positioned, prepped and draped in the usual sterile fashion. Preoperative antibiotics were
administered. A timeout procedure was performed with the nursing and anesthesia staff confirming the patients identity as well as the nature and laterality of the procedure.
The carotid bifurcation was marked with ultrasound at the beginning of the case. The incision was planned accordingly. An incision was made along the anterior border of the left sternocleidomastoid muscle. Electrocautery was used to divide the
subcutaneous tissue and platysma. The carotid sheath was entered with sharp dissection. The internal jugular vein was retracted laterally. The vagus nerve was identified and protected throughout the case. The common carotid artery was identified at
the base of this incision and carefully encircled with a vessel loop. The patient was systemically heparinized at this point. The dissection was continued distally towards the carotid bifurcation. The facial vein was skeletonized, ligated and
divided between silk ties and clips. The proximal external carotid artery was encircled with a vessel loop. The distal internal carotid artery was encircled with a vessel loop at a soft spot on the artery beyond the plaque. The hypoglossal nerve was
identified and protected.
The internal vessel loop was secured followed by the common and external. An arteriotomy was made on the distal common carotid artery with an 11-blade. This was extended proximally and distally with Palacios scissors. The arteriotomy was extended
distally through the plaque to an area of normal appearing internal carotid artery. The distal vessel loop was replaced with a short tip hockey-stick type vascular clamp. An endarterectomy was performed with a Raymond elevator in the standard
fashion. The proximal extent of the plaque was transected with scissors. The distal end of the plaque in the internal carotid artery was feathered. A slight distal intimal flap was identified along the posterior wall. This was tacked down with 2
interrupted 7-0 Prolene sutures with a very nice result. The plaque extending into the external carotid artery was everted. Once the plaque was fully removed the endarterectomy plane was irrigated with heparinized saline and any loose fronds of
tissue were removed. A pre-cut piece of bovine pericardium was sewn in place using a running 6-0 Prolene suture. Prior to the completion of the patch the common carotid was allowed to forward bleed and the external was allowed to back bleed. The
area under the patch was irrigated with heparinized saline to remove any potential thrombus or debris. The anastomosis was completed.
The external vessel loop was released first, followed by the common and then the internal. There was an excellent pulse in the distal internal carotid artery. An excellent quality Doppler signal in the distal internal carotid artery was also
confirmed. The patch suture line was closely inspected for hemostasis and was achieved. Protamine was administered. Hemostasis was achieved in the wound bed. The wound was irrigated with saline solution.
The wound was then closed in layers. Sterile skin glue was applied. The patient awoke from anesthesia with no immediate neuro deficits and was taken to the PACU in stable condition.
Attestation: I was present and responsible for the entire procedure
Signed:
Kenneth Simmons III, MD
[facility]
[phone] (pvxd)
--- NOTE | 2025-01-26 11:15 | W.SUR.POST ---
Surgical Immediate Post Op
Note
Pre Op Diagnosis: left carotid stenosis
Post Op Diagnosis: left carotid stenosis
Procedure Performed: left carotid endarterectomy with bovine patch
Primary Surgeon: Dr. Simmons
Secondary Surgeons: Dr. Rhodes
Anesthesia: general
Estimated Blood Loss: 50cc
Fluids: see anesthesia flowsheets
Drains/Shunts: none
Specimens/Cultures: carotid plaque
Doppler/Duplex/Angio (Y/N): y
Complications: none
Operative Findings: Common carotid and ICA plaque, endarterectomy. Eversion endarterectomy of external carotid. Bovine patch angioplasty.
--- NOTE | 2025-01-26 11:27 | CON.INTV ---
Consultation
Consultation Request
Date/Time Consultation Requested: 01/26/20251056
Date/Time Consultation Performed: 01/26/2025 - 1121
Requesting Provider: CHEYENNE Chávez
Performing Provider: Dr. Sun
Reason for Consultation: s/p L-CEA
Medical History
-
Chief Complaint: Elective left carotid endarterectomy
History of Present Illness:
54-year-old male active tobacco smoker with a past medical history of bilateral carotid artery stenosis, history of right MCA infarction (diagnosed April 2024), and history of Guillain-Lock� syndrome who presents for elective left carotid
endarterectomy. Patient known to vascular surgery service with last visit on 01/05/[address] Simmons. Patient had a CTA head/neck on 01/01/2025 showing complete occlusion of the right internal carotid artery at its origin, with partially calcific
atherosclerotic plaque at the left carotid bifurcation with near 70% stenosis of the left internal carotid artery at its origin. Surgical revascularization was discussed and the patient agreed to endarterectomy. Today patient underwent left
carotid endarterectomy with patch angioplasty using bovine pericardium. There were no complications and the patient was transferred to the ICU postoperatively for further care, with Adolescent Coordinator services consulted for additional
management/recommendations.
When I saw the patient, he was resting in bed in no acute distress. He was a little lethargic from recent procedure but was awake and answering my questions appropriately. He was on 2 L/min nasal cannula saturating 90% with BP 124/57 and heart
rate 58. He had some pain in the left side of his neck but otherwise denied MARTEL, abdominal pain, SOB, chest pain, fevers or chills.
PMHx: History of right-MCA stroke (April 2024), carotid artery stenosis, history of Guillain-Lock� syndrome
PSHx: Non-contributory
Past Medical History
Past Medical History: Other (Above as per HPI)
Past Surgical History: Other (Above as per HPI)
Social History
Tobacco: Smoker (Smokes 1 to 1.5 packs/day)
Alcohol: None
Drug: None
Personal:
Employment: Employed
Family History
Family History: Cancer (Son: Synovial sarcoma + melanoma) and Other (Mother: Breast mastectomy)
Allergies / Home Medications
Allergies
Allergy/AdvReac Type Severity Reaction Status Date / Time
No Known Allergies Allergy Verified 01/26/25 07:50
Home Medications
�Medication �Instructions �Recorded �Confirmed �Last Taken �Type
aspirin 81 mg chewable tablet 81 mg PO DAILY 05/03/24 01/26/25 01/25/25 08:00 History
atorvastatin 80 mg tablet 80 mg PO HS 05/03/24 01/26/25 01/25/25 22:00 History
gabapentin 300 mg capsule 300 mg PO BID neuropathic pain 30 06/02/24 01/26/25 01/25/25 22:00 Rx
days #60 caps
trazodone 50 mg tablet 50 mg PO HS insomnia 30 days #30 06/02/24 01/26/25 01/25/25 22:00 Rx
tabs
escitalopram oxalate 20 mg tablet 20 mg PO HS 01/20/25 01/26/25 01/25/25 22:00 History
hydralazine 25 mg tablet 25 mg PO BID 01/20/25 01/26/25 01/25/25 22:00 History
melatonin 5 mg tablet 5 mg PO HS 01/20/25 01/26/25 01/25/25 22:00 History
multivitamin 1 tab PO DAILY 01/20/25 01/26/25 01/25/25 08:00 History
tramadol 50 mg tablet 50 mg PO HS 01/20/25 01/26/25 01/25/25 10:00 History
Review of Systems
-
History Source: Patient
All other systems: Negative unless noted
Vitals / Labs / Diagnostic Testing
Vital Signs
Temp Pulse Resp BP Pulse Ox
97.8 F 56 17 126/54 99
01/26/25 14:30 01/26/25 13:50 01/26/25 13:50 01/26/25 13:15 01/26/25 16:15
Lab Data
01/26/25 11:49
01/26/25 11:49
Diagnostic Testing:
Physical Exam
-
HEENT: Anicteric
Cardiovascular: S1/S2, Rub (negative) and Peripheral Edema (Trace lower extremity edema bilaterally)
Respiratory: Clear, Wheeze (negative), Rales (negative), Rhonchi (negative) and Non-Labored Respirations
GI: Soft, Non Distended, Non Tender and Normal Bowel Sounds
Neurology: AO x 3, Tremors (negative) and Other (Left-sided facial droop + left lower/left upper extremity weakness (both chronic findings))
Skin: Warm and Dry
General: Respiratory Distress (negative), Comfortable, Fever (negative) and Chills (negative)
Assessment
-
Assessment: 54-year-old male active tobacco smoker with a past medical history of bilateral carotid artery stenosis, history of right MCA infarction (diagnosed April 2024), and history of Guillain-Lock� syndrome who presents for elective left
carotid endarterectomy. Patient known to vascular surgery service with last visit on 01/05/[address] Simmons. Patient had a CTA head/neck on 01/01/2025 showing complete occlusion of the right internal carotid artery at its origin, with partially
calcific atherosclerotic plaque at the left carotid bifurcation with near 70% stenosis of the left internal carotid artery at its origin. Surgical revascularization was discussed and the patient agreed to endarterectomy. Today patient underwent
left carotid endarterectomy with patch angioplasty using bovine pericardium. There were no complications and the patient was transferred to the ICU postoperatively for further care, with Adolescent Coordinator services consulted for additional
management/recommendations.
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
Impression:
#Left carotid artery stenosis s/p left carotid endarterectomy with patch angioplasty using bovine pericardium (POD #0)
#Acute anemia due to above
#History of right MCA stroke (04/2024)
#Active tobacco smoker (1�1.5 PPD)
#History of Guillain-Lock� syndrome
Plan:
Postoperative surgical intensive care unit monitoring
Supplemental oxygen as needed to maintain SpO2 >90-94%
prn nebulized bronchodilators � not currently bronchospastic
Incentive spirometry encouraged 10x per hour for at least 4 hrs a day
Aspiration precautions
Pain control
Neuro and vascular checks per protocol
Maintain MAP>65
Replete electrolytes with K>4, Mg>2
Maintain euglycemia with goal BG 140-180
Nicotine patch if okay from vascular surgery perspective
Vascular surgery following-correspondence and operative notes reviewed
Transfuse blood products as needed to keep Hb>7g/dL, and plt>50k (given post-operative status)
DVT prophylaxis: HSQ
Early nutrition
Early mobilization
Critical care statement: A total of 41 minutes of critical care time was provided for this patient today. This includes management of unstable vital signs, evaluation of the patient at bedside, reviewing the patient's pertinent medical records
including radiographs, microbiology, laboratory evaluations, and discussion with primary team, consultants, pharmacy, nutrition, physical therapy, case management, charge nurse, critical care nursing, and respiratory therapy.
[2025-01-26 11:56] LABS: Hematocrit 35.8 % (39.0-52.0); Hemoglobin 12.3 g/dL (13.0-18.0); Mean Corp Hgb Conc. 34.4 g/dL (33.0-37.0); Mean Corpuscular Hgb 31.1 pg (27.0-31.0); Mean Corpuscular Volume 90.6 fL (80.0-94.0); Mean Platelet Volume 10.4 fL (7.4-10.4); Platelet Count 189 10^3/uL (130-400); Red Blood Cell Count 3.95 10^6/uL (4.70-6.10); Red Cell Dist. Width 13.3 % (11.5-14.5); White Blood Cell Count 10.2 10^3/uL (4.8-10.8)
[2025-01-26 12:34] LABS: Blood Urea Nitrogen 18 mg/dl (9-20); Carbon Dioxide 28 mmol/L (22-30); Chloride 106 mmol/L (98-107); Estimated Creatinine Clearance > 125 ml/min; Glucose 130 mg/dl (70-99); Potassium 3.9 mmol/L (3.5-5.1); Sodium 139 mmol/L (135-145); eGFR > 60.00
[2025-01-26] MEDS: NSS 1000 IV ×2 (12:56→23:10)
--- NOTE | 2025-01-26 14:15 | PTCARENOTE ---
Addendum entered by Janel Alfonso RN 01/26/25 16:38:
NSR written in error...pt is sinus leydi on monitor.
Original Note:
Rec'd pt from PACU. Pt rec'd drowsy but easily arousable. A&Ox3. Pleasant. C/o 05/28 left neck pain...see MAR. Previous hx of CVA w/ left hemiparesis and left facial droop. Neuro checks per orders...see intervention. S1 S2 reg w/ NSR on
monitor. Weak PP. +2 LLE. On 2L N/C...sats 98%. Lungs clear except right base w/ fine crackles. Encouraged to cough and deep breath. Abdomen obese...hypo BS. No void...bladder scanned for 473mls...will monitor. Skin pale, warm, dry and
intact except left neck surgical incision and left great toe laceration (from pt's dog). NSS @ 80ml/hr. Right radial arlette...flushed and zeroed. VS documented. Call al within reach.
[2025-01-26] MEDS: DILAUDID 0.5 MG IV ×3 (14:24→23:10)
[2025-01-26] MEDS: NSS 500 IV (14:42)
[2025-01-26] MEDS: BACTROBAN NASAL 1 GRAM NASAL (14:43)
[2025-01-26] MEDS: PERIDEX 0.12% ORAL RINSE 15 ML PO (14:44)
--- NOTE | 2025-01-26 16:30 | PTCARENOTE ---
No changes in physical assessment since arrival to ICU. Pt able to take sips of apple juice w/o issue. Dinner ordered.
--- NOTE | 2025-01-26 16:40 | PTCARENOTE ---
ECG done and placed on pt's chart.
--- NOTE | 2025-01-26 17:58 | PTCARENOTE ---
Bladder scanned for 591mls. Urinal provided...pt feels urge to void...will monitor.
--- NOTE | 2025-01-26 18:08 | PTCARENOTE ---
Pt able to void 250mls of blaise urine. Will continue to monitor.
--- NOTE | 2025-01-26 20:00 | PTCARENOTE ---
qa architect, pt aaox3, Neuro checks as documented on work list. SB HR 50s. L neck incision CDI with skin glue. B/L IV patent, R rad [place] leveled/zeroed. POC discussed, call al with pt.
[2025-01-26] MEDS: APRESOLINE 25 MG PO (20:21)
[2025-01-26] MEDS: NEURONTIN 300 MG PO (21:03)
[2025-01-26] MEDS: LIPITOR 80 MG PO (21:03)
[2025-01-26] MEDS: LEXAPRO 20 MG PO (21:03)
[2025-01-26] MEDS: HEPARIN 5000 UNITS SC (21:03)
[2025-01-27] VITALS (9 sets, daily range): BP systolic 129–166; BP diastolic 57–114; BMI 33.1
--- NOTE | 2025-01-27 | PTCARENOTE ---
no changes in assessment.
[2025-01-27] MEDS: DILAUDID 0.5 MG IV (01:10)
[2025-01-27] MEDS: CARDENE 200 IV (03:00)
--- NOTE | 2025-01-27 03:00 | PTCARENOTE ---
SBP sustaining >165- Cardene gtt started per work list.
[2025-01-27 03:26] LABS: Hemoglobin 11.6 g/dL (13.0-18.0); Mean Corp Hgb Conc. 34.1 g/dL (33.0-37.0); Mean Corpuscular Hgb 30.8 pg (27.0-31.0); Mean Corpuscular Volume 90.2 fL (80.0-94.0); Mean Platelet Volume 10.1 fL (7.4-10.4); Platelet Count 189 10^3/uL (130-400); Red Blood Cell Count 3.77 10^6/uL (4.70-6.10); Red Cell Dist. Width 13.3 % (11.5-14.5); White Blood Cell Count 12.2 10^3/uL (4.8-10.8)
[2025-01-27 03:37] LABS: APTT 28.7 Sec (23.4-35.0); INR 1.08; PT 14.3 Sec (11.4-14.6)
[2025-01-27 03:50] LABS: Blood Urea Nitrogen 20 mg/dl (9-20); Calcium 9.5 mg/dl (8.4-10.2); Carbon Dioxide 26 mmol/L (22-30); Chloride 103 mmol/L (98-107); Estimated Creatinine Clearance > 125 ml/min; Glucose 120 mg/dl (70-99); Magnesium 2.1 mg/dl (1.6-2.3); Potassium 4.5 mmol/L (3.5-5.1); Sodium 138 mmol/L (135-145); eGFR > 60.00
[2025-01-27] MEDS: HEPARIN 5000 UNITS SC (07:27)
[2025-01-27] MEDS: LOW STRENGTH ASPIRIN 81 MG PO (07:27)
[2025-01-27] MEDS: NEURONTIN 300 MG PO (07:27)
[2025-01-27] MEDS: THERAGRAN 1 TABLET PO (07:27)
[2025-01-27] MEDS: APRESOLINE 25 MG PO (07:27)
--- NOTE | 2025-01-27 08:23 | W.PN.INTV ---
Today's Communication / Plan
Recommendations
Pain control
Up OOB as tolerated
Encouraged incentive spirometer use
Outpatient follow-up with vascular surgery
Patient is being prepared for discharge home. No additional recommendations at this time. Management Architect/Pulmonary service will now sign off. Please reconsult if there are any additional questions/concerns, or if patient's respiratory status
deteriorates.
Assessment
-
Assessment: 54-year-old male active tobacco smoker with a past medical history of bilateral carotid artery stenosis, history of right MCA infarction (diagnosed April 2024), and history of Guillain-Lock� syndrome who presents for elective left
carotid endarterectomy. Patient known to vascular surgery service with last visit on 01/05/[address] Simmons. Patient had a CTA head/neck on 01/01/2025 showing complete occlusion of the right internal carotid artery at its origin, with partially
calcific atherosclerotic plaque at the left carotid bifurcation with near 70% stenosis of the left internal carotid artery at its origin. Surgical revascularization was discussed and the patient agreed to endarterectomy. Today patient underwent
left carotid endarterectomy with patch angioplasty using bovine pericardium. There were no complications and the patient was transferred to the ICU postoperatively for further care, with Management Architect services consulted for additional
management/recommendations.
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
Impression:
#Left carotid artery stenosis s/p left carotid endarterectomy with patch angioplasty using bovine pericardium (POD #1)
#Acute anemia due to above
#History of right MCA stroke (04/2024)
#Active tobacco smoker (1�1.5 PPD)
#History of Guillain-Lock� syndrome
Plan:
Postoperative surgical intensive care unit monitoring
Supplemental oxygen as needed to maintain SpO2 >90-94%
prn nebulized bronchodilators � not currently bronchospastic
Incentive spirometry encouraged 10x per hour for at least 4 hrs a day
Aspiration precautions
Pain control
Neuro and vascular checks per protocol
Maintain MAP>65
Replete electrolytes with K>4, Mg>2
Maintain euglycemia with goal BG 140-180
Nicotine patch if okay from vascular surgery perspective
Vascular surgery following-correspondence and operative notes reviewed
Transfuse blood products as needed to keep Hb>7g/dL, and plt>50k (given post-operative status)
DVT prophylaxis: HSQ
Early nutrition
Early mobilization
Patient is being prepared for discharge home. No additional recommendations at this time. Management Architect/Pulmonary service will now sign off. Thank you for allowing us to be involved in the care of this patient. Please reconsult if there are any
additional questions/concerns, or if patient's respiratory status deteriorates.
Total time spent today was 43 minutes for this encounter. Time includes reviewing laboratory test/imaging results, reviewing pertinent medical records, obtaining and reviewing medical history, performing an appropriate exam, ordering medications,
tests and procedures. Time also includes documentation of this encounter, coordinating patient care and communicating with other healthcare professionals. Total time does not include separately billed tests performed on this date of service.
Subjective Dataa
Subjective Data
Date of Service:
Date of Service: January 27, 2025
Chief Complaint: Management Architect Follow Up
Subjective:
Patient seen and evaluated this morning. Currently doing well, sitting in chair in no acute distress. Heart rate 48, BP 137/58 and saturating 98% on room air. He has generalized discomfort but is eager to go home; he is likely going home today.
Review of Systems
General: Other (Negative unless mentioned above)
Objective Data
Data Reviewed
Vital Signs / I&O / Oxygen:
Vital Signs
Temp Pulse Resp BP Pulse Ox
98.1 F 59 16 136/85 97
01/27/25 07:39 01/27/25 08:12 01/27/25 08:12 01/27/25 08:12 01/27/25 08:12
Intake and Output
01/26/25 01/27/25 01/28/25
06:59 06:59 06:59
Intake Total 2910.0 / 3015.0
Output Total 825 / 825
Balance 2085.0 / 2190.0 / 210
SaO2 97
Nasal Cannula flow liters per 2
minute
Physical Exam
General: Respiratory Distress (negative), Comfortable, Chills (negative) and Sweats (negative)
HEENT: Normocephalic and Anicteric
Cardiovascular: S1-S2, Peripheral Edema (negative) and Other (Bradycardic)
Respiratory: Clear, Wheeze (negative), Crackles (negative), Rhonchi (negative) and Non-Labored Respirations
GI: Soft, Non Distended, Non Tender and Normal Bowel Sounds
Neurology: AO x 3 and Tremors (negative)
Skin: Warm, Dry and Other (Linear scar seen on left anterior neck from recent operation)
Labs/Micro/Reports
Lab Data
01/27/25 03:02
01/27/25 03:02
Laboratory Results
01/27/25
03:02
PT 14.3
INR 1.08
APTT 28.7
--- NOTE | 2025-01-27 08:26 | W.PN.VS ---
Addendum entered and electronically signed by CHEYENNE Montalvo 01/27/25 12:23:
Addendum to physical exam from earlier today, typo for face symmetrical, face is asymmetrical with left facial droop unchanged from prior assessment, patient endorses persistent facial droop since her stroke in April,.
Original Note:
Today's Communication / Plan
-
Patient seen and examined at bedside with Dr. Kenneth Simmons III, below plan reviewed with attending
Assessment/Plan
-
Assessment: 54-year-old male POD #1 left carotid endarterectomy
Plan:
Patient currently requiring Cardene infusion for BP control, wean as tolerated following administration of home p.o. meds for antihypertensive
Discontinue arterial line once Cardene infusion turned off
Reviewed with Dr. Kenneth Simmons who agrees with giving patient one-time dose of Toradol for lower back discomfort
OOB to chair as tolerated, given history of left hemiplegia will consult PT
Discontinue IV fluids
Possible discharge later this afternoon pending progression
Subjective Data
-
Date of Service: January 27, 2025
Patient seen and examined at bedside, reports adequate postoperative pain at left neck does endorse pain exacerbated by likely bed position of chronic lower back. Patient indicates that historically Tylenol and oxycodone have never assisted in his
chronic lower back pain, he is requesting an NSAID. Denies nausea, vomiting, fever, headache, and chills. Tolerating p.o. diet. Patient indicates no difference in baseline neurological status, he does have a history of left hemiaplasia following
stroke occurring in April,.
Objective Data
-
Vital Signs
Temp Pulse Resp BP Pulse Ox
98.1 F 59 16 136/85 97
01/27/25 07:39 01/27/25 08:12 01/27/25 08:12 01/27/25 08:12 01/27/25 08:12
Intake and Output
01/26/25 01/27/25 01/28/25
06:59 06:59 06:59
Intake Total 2910.0 / 3015.0 210 / 210
Output Total 825 / 825
Balance 2085.0 / 2190.0 / 210
Intake:
Oral fluids 1320 / 1320
IV fluids (Total) 1590.0 / 1695.0 210 / 210
Nss 1,000 ml @ 80 mls/hr IV . 1440 / 1520 160 / 160
[id number] Rx#:[id number]
cardene 50.0 / 75.0 50 / 50
normosol 100 / 100
Output:
Urine, Voided 825 / 825
Lab Results
01/27/25 03:02
01/27/25 03:02
Calcium 9.5 mg/dl (8.4-10.2) 01/27/25 03:02
Magnesium 2.1 mg/dl (1.6-2.3) 01/27/25 03:02
Physical Exam
-
No apparent distress, resting in bed comfortably in chair position to aid in the discomfort of his chronic lower back pain
Face symmetrical, left neck surgical incision CDI, no evidence of hematoma
No tachycardia
No dyspnea
ABD rotund
Bilateral lower extremities without edema
--- NOTE | 2025-01-27 08:33 | PTCARENOTE ---
Assumed care of pt. BP managed with cardine gtt. Assessment as noted. Pt complaining of 9/10 lower back pain due to positioning in bed. Refusing ordered meds. Vascular team to bedside and discussed pain med options. A-line removed as instructed, PO
HTN med given and cardene off. Pt OOB to Chair with walker, standby assistance.
[2025-01-27] MEDS: TORADOL 15 MG IV (09:18)
--- NOTE | 2025-01-27 10:20 | CM ---
CM following re: discharge planning.
Reviewed pt's chart, met with pt.
Pt is a 54 year old male, admitted with primary dx of POD#1 Left CEA. Per Vascular surgery pt most likely will be discharged home this afternoon. pt is aware and he stated his parents are coming from [facility] and they will transport him home.
pt reports he lives with brother and his family in a 1SH, 1 step to enter, has 2 supportive children, supportive parents and supportive brother. Pt reports he uses a sergey walker for ambulation, has a wheelchair, known to [facility], was at [facility]
rehab and [facility] in the past. Pt expressed his desire to return back home at discharge and pt stated he will not need any after care VN services.
PCP: Adolfo Dunne
Pharmacy: [facility].
D/C plan: home with anticipated no needs. Parents to transport at discharge.
--- NOTE | 2025-01-27 12:21 | W.DS.TRANS ---
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
-
Discharge Instructions:
Discharge Diagnosis/Procedures Left carotid endarterectomy
Diet As tolerated
Activity No strenuous activity
Driving Restrictions Not until seen by your Dr
Bathing Restrictions OK to Shower
Instructions:
Stand-Alone Forms: DC Instr - Vascular OR
Changes to Home Medications: No
Discharge Medications:
DC Medications w/original date entered in [facility]
aspirin 81 mg chewable tablet 81 mg PO DAILY Blood Clot Prevention/Tx 05/03/24
atorvastatin 80 mg tablet 80 mg PO HS High Cholesterol 05/03/24
gabapentin 300 mg capsule 300 mg PO BID neuropathic pain 30 days #60 caps 06/02/24
trazodone 50 mg tablet 50 mg PO HS insomnia 30 days #30 tabs 06/02/24
escitalopram oxalate 20 mg tablet 20 mg PO HS Mental Health/Anxiety 01/20/25
hydralazine 25 mg tablet 25 mg PO BID Blood Pressure 01/20/25
melatonin 5 mg tablet 5 mg PO HS Sleep 01/20/25
multivitamin 1 tab PO DAILY Supplement 01/20/25
tramadol 50 mg tablet 50 mg PO HS Pain 01/20/25
Home Medication Changes
Pending Results: No
--- NOTE | 2025-01-27 13:58 | PTCARENOTE ---
Discharge instructions discussed. VSS. Pt changed without issue. to wheelchair and escorted to vehicle with parents.
== END 2025-01-27 12:43 | disposition home or self-care (01) | DRG 39 ==
LOC: ICU 07:07
PROVIDERS: Nurse Practitioner; ADMITTING PHYSICIAN Surgery Vascular Surgery; CONSULT PHYSICIAN Internal Medicine Critical Care Medicine; PRIMARYCARE PHYSICIAN Family Medicine
PROC: 03CJ0ZZ Extirpation of Matter from Left Common Carotid Artery, Open Approach (ICD-10-PCS; 2025-01-26)
PROC: 03UL0KZ Supplement Left Internal Carotid Artery with Nonautologous Tissue Substitute, Open Approach (ICD-10-PCS; 2025-01-26)
DX: I65.22 Occlusion and stenosis of left carotid artery (principal); D64.9 Anemia, unspecified; F17.210 Nicotine dependence, cigarettes, uncomplicated; I69.392 Facial weakness following cerebral infarction
CPT/HCPCS: 88304; 88311; 35301; 36415; 71046; 80048; 83735; 85025; 85027; 85610; 85730; 93005; 95938; 95941; 95955

== ENCOUNTER → 2025-02-26 11:02 | Outpatient (REF) | payer OTHER, SELFPAY | LOC: RAD 11:02 | PROVIDERS: ATTENDING PHYSICIAN Physician Assistant; FAMILY PHYSICIAN Family Medicine | DX: I65.22 Occlusion and stenosis of left carotid artery (principal) | CPT/HCPCS: 93880 ==

== ENCOUNTER → 2025-04-16 09:10 | Outpatient (REF) | payer OTHER, SELFPAY | LOC: RAD 09:10 | PROVIDERS: ATTENDING PHYSICIAN Family Medicine | DX: M54.9 Dorsalgia, unspecified (principal) | CPT/HCPCS: 72110 ==

== ENCOUNTER → 2025-10-16 12:22 | Outpatient (REF) | payer OTHER, SELFPAY | LOC: RAD 12:22 | PROVIDERS: ATTENDING PHYSICIAN Surgery Vascular Surgery; FAMILY PHYSICIAN Internal Medicine | DX: I65.22 Occlusion and stenosis of left carotid artery (principal) | CPT/HCPCS: 93880 ==